=== PATIENT | female | born 1950 | race Caucasian/White ===

== ENCOUNTER 2020-08-17 10:04 | Inpatient (IN) ==
--- NOTE | 2020-08-03 16:07 | PAT Medication Instructions ---
Medication Instructions Date of Service August 03, 2020 Home Medications Medication Instructions Recorded furosemide 20 mg tablet 20 mg PO DAILY #90 tab 07/05/20 acarbose 50 mg PO TID aspirin [Aspir-81] 81 mg PO HS docusate sodium [Stool Softener] 100 mg PO QAM gabapentin 300 mg PO TID glipizide 10 mg PO BID levothyroxine 50 mcg PO QAM lisinopril 10 mg PO HS metformin 1,000 mg PO BID multivitamin 1 tab PO QAM peg 135-[id number]-[id number] [Eye Drop Tears] 1 drp OPHTHALMIC (EYE) BID PRN pravastatin 10 mg PO HS furosemide 20 mg tablet 20 mg PO DAILY pantoprazole 40 mg tablet,delayed release 40 mg PO DAILY PRN DO NOT take the morning of surgery acarbose 50 mg PO TID docusate sodium [Stool Softener] 100 mg PO QAM glipizide 10 mg PO BID metformin 1,000 mg PO BID multivitamin 1 tab PO QAM furosemide 20 mg tablet 20 mg PO DAILY gabapentin 300 mg PO TID Take morning of surgery With a small sip of water, OTHERWISE NOTHING TO EAT OR DRINK AFTER MIDNIGHT: levothyroxine 50 mcg PO QAM peg 298-[id number] [Eye Drop Tears] 1 drp OPHTHALMIC (EYE) BID PRN (if needed) pantoprazole 40 mg tablet,delayed release 40 mg PO DAILY PRN (if needed) Take evening before surgery acarbose 50 mg PO TID aspirin [Aspir-81] 81 mg PO HS (unless otherwise instructed by surgeon) gabapentin 300 mg PO TID glipizide 10 mg PO BID lisinopril 10 mg PO HS metformin 1,000 mg PO BID peg [id number]-[id number] [Eye Drop Tears] 1 drp OPHTHALMIC (EYE) BID PRN (if needed) pravastatin 10 mg PO HS pantoprazole 40 mg tablet,delayed release 40 mg PO DAILY PRN (if needed) Other Notes If you have any questions please call us at [phone] or [phone] or [phone] or [phone]
--- NOTE | 2020-08-06 10:55 | Anesthesiology Consultation ---
Date of Service August 06, 2020 Assessment & Plan (1) Encounter for pre-operative examination: Chart Review Chart Review: Acceptable Risk for Surgery (pending preop Covid testing results ) and Patient seen in Pre Admission Testing - Check BSG AM DOS Was initially scheduled for surgery May 2020- rescheduled due to hyponatremia. Seen by nephrology- started on diuretic and fluid restriction. Last seen by nephro 07/19/20= hyponatremia corrected (NA now 137). Patient following liberalization of NaCl in diet addition of low-dose furosemide. " Patient may proceed with orthopedic surgery if desired." Pt usually has N/V with most pain meds- can tolerate Tylenol #3 with codeine Per PAT appt on 08/06/20, patient denies any recent travel. No known Covid positive contacts or Covid related symptoms. Pt denies any known Covid infection in the past 90 days. Pt scheduled for preop Covid testing 08/10/20= will await results. Educated on importance of self quarantining, social distancing and wearing mask in public both for the patient and household contacts. Teaching & Discussion Pre-Anesthesia Teaching/Discussion Notes: Instructed NPO after midnight before surgery,except medications with 15 cc of water. Medication instructions provided according to the PAT guidelines. History Surgery Operation Date: 08/17/20 13:05 Proposed Procedures p L2-S1 Decompression/Fusion, Spinal Cord Monitoring - Mio Nugent DO Height/Weight Height: 5 ft Weight: 70.1 kg Allergies Allergy/AdvReac Type Severity Reaction Status Date / Time Opioids - Morphine Analogues AdvReac Mild N/V Verified 08/03/20 08:40 Medications Home Medications Medication Instructions Recorded Confirmed Last Taken acarbose 50 mg PO TID 05/10/20 08/03/20 Unknown aspirin [Aspir-81] 81 mg PO HS 05/10/20 08/03/20 Unknown docusate sodium [Stool Softener] 100 mg PO QAM 05/10/20 08/03/20 Unknown gabapentin 300 mg PO TID 05/10/20 08/03/20 Unknown glipizide 10 mg PO BID 05/10/20 08/03/20 Unknown levothyroxine 50 mcg PO QAM 05/10/20 08/03/20 Unknown lisinopril 10 mg PO HS 05/10/20 08/03/20 Unknown metformin 1,000 mg PO BID 05/10/20 08/03/20 Unknown multivitamin 1 tab PO QAM 05/10/20 08/03/20 Unknown peg [id number] [Eye 1 drp OPHTHALMIC (EYE) BID PRN 05/10/20 02/11/16 Unknown Drop Tears] pravastatin 10 mg PO HS 05/10/20 08/03/20 Unknown furosemide 20 mg tablet 20 mg PO DAILY #90 tab 07/05/20 08/03/20 Unknown pantoprazole 40 mg tablet,delayed 40 mg PO DAILY PRN 07/05/20 08/03/20 Unknown release Past Medical History Medical History (Updated 08/06/20 @ 11:22 by Liliana Tinoco PA-C) Chronic back pain LLE radiculopathy Chronic kidney disease stage III Diabetes mellitus, type 2 NIDDM- Hgb A1C 8.2 on 06/19/20 Hiatal hernia Hyperlipidemia Hypertension Hypothyroidism Low sodium levels HX OF (CURRENTLY WNL PER PATIENT) Neck pain chronic s/p remote whiplash injury 40+ years ago Exercise / Class Metabolic Activity III < 4 Walking/Shop/Light housework (no chest pain or SOB with flat surface/short distance ambulation- uses walker/cane for ambulation for stability ) Past Family History Family History Mother Family history of diabetes mellitus Grandmother (Maternal) Family history of diabetes mellitus Family/Other Family history of diabetes mellitus Uncle Family history of diabetes mellitus Son Family history of diabetes mellitus Denies family history of Kidney disease Past Surgical History Surgical History History of cholecystectomy History of colonoscopy History of cystoscopy multiple History of esophagogastroduodenoscopy (EGD) + dilation Hx of lumpectomy left breast (benign)/no limb restrictions Past Anesthesia History No Hx of Anesthesia Complications and No Family Hx of Anesthesia Complications History of PONV No Hx of Motion Sickness and History of PONV (with pain meds ) Social History Smoking Status: Former smoker Do You Dip or Chew Tobacco: No Smoking End Date: 6 MONTHS AGO Hx Alcohol Use: No Hx Substance Use: No Review of Systems GERD - rare- secondary to hiatal hernia - takes OTC meds - improved Snoring - no hx of sleep study Patient denies chest pain, shortness of breath, dyspnea on exertion, reflux, cough, wheezing, palpitations. No hx of seizures, stroke, MO.. No hx of blood clots or blood transfusions Physical Exam Vital Signs VITALS BP 123/84 P 92 TEMP 98.3 SP02 96% RESP 16 Constitutional no acute distress ENMT Mouth: no TMJ clicking Thyromental Distance: > or= 3.5 Finger Breadths (3.5) Mallampati Class: II Full upper dentures Lower partial dentures Neck + limited neck extension (mild to moderate ) Respiratory normal respiratory effort; no respiratory distress Auscultation: lungs clear to auscultation bilaterally and + diminished lung sounds (mildly throughout ); no wheezes Cardiovascular Rate/Rhythm: regular rate and regular rhythm Heart Sounds: no murmur Vessels: no carotid bruit Musculoskeletal Spine: + pain with cervical ROM (mild stiffness ) Extremities: extremities normal to inspection Psychiatric Orientation: alert Testing Laboratory Results 08/06/20 11:15 08/06/20 11:15 PT 10.0 Seconds (9.0-12.0) 08/06/20 11:15 INR 1.0 (0.9-1.1) 08/06/20 11:15 APTT 25.4 Seconds (21.0-31.0) 08/06/20 11:15 Urine Color Yellow 08/06/20 11:15 Urine Appearance Clear (Clear) 08/06/20 11:15 Urine pH 5.0 (4.5-7.5) 08/06/20 11:15 Ur Specific [place] 1.010 (1.000-1.030) 08/06/20 11:15 Urine Protein Negative (Negative) 08/06/20 11:15 Urine Glucose (UA) Negative (Negative) 08/06/20 11:15 Urine Ketones Negative (Negative) 08/06/20 11:15 Urine Nitrite Negative (Negative) 08/06/20 11:15 Ur Leukocyte Esterase Negative (Negative) 08/06/20 11:15 Urine WBC (Auto) 1-5 /hpf (0-5) 08/06/20 11:15 Urine RBC (Auto) 0-4 /hpf (0-4) 08/06/20 11:15 U Hyaline Cast (Auto) 1-5 /lpf (0-5) 08/06/20 11:15 U Epithel Cells (Auto) 10-20 /lpf (0-5) H 08/06/20 11:15 Urine Bacteria (Auto) Negative (Negative) 08/06/20 11:15 Blood Type O Positive 08/06/20 11:15 Antibody Screen NEGATIVE 08/06/20 11:15 06/19/20= HGB A1C: 8.2 Electrocardiogram Date: 05/22/20 Findings: + NSR @ (91) Chest X-Ray Date: 05/22/20 Findings: + NAD Other Testing Chest CT 06/19/20= Mild pulmonary emphysema. No evidence of focal pulmonary consolidation. There are a few scattered pulmonary micronodules, none of which exceeds 3 mm in diameter. No evidence of pathologic adenopathy.
[2020-08-06 11:50] LABS: Basophils # (auto) 0.04 K/uL (0-0.2); Basophils % (auto) 0.7 %; Eosinophils # (auto) 0.26 K/uL (0-0.5); Eosinophils % (auto) 4.4 %; Hematocrit (blood only) 37.5 % (37-47); Hemoglobin 12.2 g/dL (12.0-16.0); Lymphocytes # (auto) 2.15 K/uL (1.2-3.4); Lymphocytes % (auto) 36.6 %; Mean Corpuscular Hgb Conc 32.5 g/dL (32-36); Mean Corpuscular Volume 92.4 fL (80-100); Mean Platelet Volume 9.1 fL (7.4-10.4); Monocytes # (auto) 0.34 K/uL (0.11-0.59); Monocytes % (auto) 5.8 %; Neutrophils # (auto) 3.08 K/uL (1.4-6.5); Neutrophils % (auto) 52.5 %; Platelet Count 357 K/uL (130-400); RDW Coefficient of Variation 12.3 % (11.5-14.5); RDW Standard Deviation 41.6 fL (36.4-46.3); Red Blood Count 4.06 M/uL (4.2-5.4); White Blood Count 5.87 K/uL (4.8-10.8)
[2020-08-06 11:54] LABS: Appearance Urine Clear (Clear); Bacteria Urine Automated Negative (Negative); Bilirubin Urine Negative (Negative); Blood Urine 1+ (Negative); Color Urine Yellow; Glucose Urine UA Negative (Negative); Ketones Urine Negative (Negative); Leukocyte Esterase Urine Negative (Negative); Nitrite Urine Negative (Negative); Protein Urine Negative (Negative); RBC Urine Automated 0-4 /hpf (0-4); Urobilinogen Urine Negative (Negative)
[2020-08-06 12:00] LABS: BUN Creatinine Ratio 13.6 (10-20); Calcium 9.9 mg/dl (8.5-10.1); Creatinine Clr Calc Pharmacy 41.7 ml/min; Est GFR (African American) 59.8; Est GFR (Non-African American) 51.6; Potassium 4.6 mmol/L (3.5-5.1)
[2020-08-06 12:03] LABS: Partial Thromboplastin Time 25.4 Seconds (21.0-31.0)
[~2020-08-17 10:04] MED LIST: ACETAMINOPHEN 500 MG TAB PO SCH; CeleBREX 200 MG CAP PO SCH; GABAPENTIN 300 MG CAP PO SCH; HYDROmorphone INJ 2 MG/ML SYR/VIAL ONE; LR 15ML/HR IV SCH; MIDAZOLAM HCL 1 MG/ML 2ML VIAL ONE; ceFAZolin 1000MG 1,000 MG/7.5 ML SYR IV SCH; fentaNYL citrate 100 MCG/2 ML VIAL ONE
--- NOTE | 2020-08-17 12:24 | History & Physical Bridge Note ---
Date of Service August 17, 2020 History & Physical Bridge Note I have examined the patient, reviewed the History & Physical and in the interval since the performance of the History & Physical I have noted the following changes of clinical significance: no changes noted
--- NOTE | 2020-08-17 12:25 | History & Physical Report ---
Date of Service August 17, 2020 Assessment & Plan (1) Neurogenic claudication due to lumbar spinal stenosis: Admission and Anticipated Discharge Date Admission Date: L2-S1 decompression fusion History of Present Illness Chief Complaint: Back and leg pain Primary Care Provider: Kirt Antonio This is a 70-year-old female presents with chronic persistent back and leg pain. Failing course of nonoperative care is here for surgical invention. Allergies Allergy/AdvReac Type Severity Reaction Status Date / Time Opioids - Morphine Analogues AdvReac Mild N/V Verified 08/17/20 10:36 Home Medications Medication Instructions Recorded Confirmed Type acarbose 50 mg PO TID 05/10/20 08/17/20 History aspirin [Aspir-81] 81 mg PO HS 05/10/20 08/17/20 History docusate sodium [Stool Softener] 100 mg PO QAM 05/10/20 08/17/20 History gabapentin 300 mg PO TID 05/10/20 08/17/20 History glipizide 10 mg PO BID 05/10/20 08/17/20 History levothyroxine 50 mcg PO QAM 05/10/20 08/17/20 History lisinopril 10 mg PO HS 05/10/20 08/17/20 History metformin 1,000 mg PO BID 05/10/20 08/17/20 History multivitamin 1 tab PO QAM 05/10/20 08/17/20 History peg [id number] [Eye 1 drp OPHTHALMIC (EYE) BID PRN 05/10/20 08/17/20 History Drop Tears] pravastatin 10 mg PO HS 05/10/20 08/17/20 History furosemide 20 mg tablet 20 mg PO DAILY #90 tab 07/05/20 08/17/20 Rx pantoprazole 40 mg tablet,delayed 40 mg PO DAILY PRN 07/05/20 08/17/20 History release Past Med/Surg History Medical History (Updated 08/17/20 @ 12:25 by Mio Nugent DO) Chronic back pain LLE radiculopathy Chronic kidney disease stage III Diabetes mellitus, type 2 NIDDM- Hgb A1C 8.2 on 06/19/20 Hiatal hernia Hyperlipidemia Hypertension Hypothyroidism Low sodium levels HX OF (CURRENTLY WNL PER PATIENT) Neck pain chronic s/p remote whiplash injury 40+ years ago Surgical History History of cholecystectomy History of colonoscopy History of cystoscopy multiple History of esophagogastroduodenoscopy (EGD) + dilation Hx of lumpectomy left breast (benign)/no limb restrictions Family History Mother Family history of diabetes mellitus Grandmother (Maternal) Family history of diabetes mellitus Family/Other Family history of diabetes mellitus Uncle Family history of diabetes mellitus Son Family history of diabetes mellitus Denies family history of Kidney disease Social History Smoking Status: Former smoker Years Smoked: 50; Smoking End Date: 6 MONTHS AGO; Second Hand Exposure: Yes (SPOUSE USED TO SMOKE); Do You Dip or Chew Tobacco: No; Tobacco Cessation Education Requested by Patient: No Hx Alcohol Use: No Hx Substance Use: No Preferred Language: French Communication Ability: Effective Cloth Winder Required: No Beliefs That Will Affect Care: None Current Living Situation: Spouse current occupation: retired [employer] Feels Safe at Home: Yes Safety Concerns: Feels Safe At This Time Assistive Devices: Cane, Denture - Upper, Glasses and Walker Physical Exam Physical Exam: Patient is alert and oriented Heart regular rate and rhythm Lungs clear to auscultation Results & Data ([facility]) Vital Signs (Past 12 Hours) Vital Signs Temp Pulse Resp BP Pulse Ox 08/17/20 10:42 36.8 C 97 H 18 120/76 98
[2020-08-17] MEDS ORDERED: PROMETHAZINE HCL 12.5 MG in SODIUM CHLORIDE 0.9% 50 ML IV PRN ×2 (12:41→18:08)
[2020-08-17] MEDS ORDERED: ONDANSETRON INJ 2 MG/ML 2 ML VIAL IV PRN ×2 (12:41→18:08)
[2020-08-17] MEDS ORDERED: HYDROmorphone INJ 2 MG/ML SYR/VIAL IV PRN (12:41)
[2020-08-17] MEDS ORDERED: fentaNYL citrate 100 MCG/2 ML VIAL IV PRN (12:41)
[2020-08-17] MEDS ORDERED: ePHEDrine sulfate 50 MG/ML AMP IV PRN (12:41)
[2020-08-17] MEDS ORDERED: METOCLOPRAMIDE HCL INJ 5 MG/ML 2 ML VIAL IV PRN ×2 (12:41→18:08)
[2020-08-17] MEDS ORDERED: ATROPINE SULFATE 0.1 MG/ML 10ML SYR IV PRN (12:41)
[2020-08-17] MEDS ORDERED: BACITRACIN INJ 50,000 UNIT VIAL ONE (12:46)
[2020-08-17] MEDS ORDERED: BUPIVACAINE/EPINEPHRINE 0.5% MPF 1:200,000 30 ML VIAL ONE (12:46)
[2020-08-17] MEDS ORDERED: ALBUMIN HUMAN 5% 12.5 GM/250 ML VIAL IV ONE (12:48)
[2020-08-17] MEDS ORDERED: ONDANSETRON INJ 2 MG/ML 2 ML VIAL ONE (14:18)
[2020-08-17] MEDS ORDERED: diphenhydrAMINE 50 MG/ML VIAL ONE (14:18)
[2020-08-17] MEDS ORDERED: LIDOCAINE HCL 2% 2 ML VIAL/AMP(20MG/ML) INFIL ONE (14:18)
[2020-08-17] MEDS ORDERED: DEXAMETHASONE SOD INJ 4 MG/ML VIAL ONE (14:18)
[2020-08-17] MEDS ORDERED: PHENYLEPHRINE HCL 10 MG/ML VIAL ONE (14:18)
[2020-08-17] MEDS ORDERED: ROCURONIUM BROMIDE 10 MG/ML 5 ML VIAL IV ONE (14:18)
[2020-08-17] MEDS ORDERED: GLYCOPYRROLATE 0.2 MG/ML VIAL ONE (14:18)
[2020-08-17] MEDS ORDERED: LARYING-O-JET KIT (LTA) ONE (14:18)
[2020-08-17] MEDS ORDERED: ePHEDrine sulfate 50 MG/ML AMP ONE (14:18)
[2020-08-17] MEDS ORDERED: PROPOFOL IV EMULSION 10 MG/ML 20 ML VIAL IV ONE (14:18)
[2020-08-17] MEDS ORDERED: NEOSTIGMINE METHYLSULFATE 1 MG/ML 10ML VIAL ONE (14:18)
[2020-08-17] MEDS ORDERED: FLOSEAL HEMOSTATIC MATRIX 10ML TOP ONE (16:09)
--- NOTE | 2020-08-17 16:11 | Operative Report ---
Post Operative Report Pre & Post Diagnosis Operation Date: 08/17/20 11:45 Pre-Op Diagnosis: Intervertebral Disc Disorders with Radiculopathy L2-S1 Post-Op Diagnosis: Intervertebral Disc Disorders with Radiculopathy L2-S1 I identified the patient and participated in the time-out.: Yes Procedure Operation Date: 08/17/20 11:45 Actual Procedures #1 lumbar decompression bilateral medial facetectomies and foraminotomies L2-3, L3-4, L4-5 and L5-S1. #2 posterior spinal fusion L2-3, L3-4, L4-5 and L5-S1. #3 placement posterior segmental instrumentation including cross-link L2-S1. #4 placement locally harvested morselized autograft in the posterior gutters. #5 placement infuse collagen sponge combined with master graft in the posterior lateral gutters L2-S1. Surgeon Mio Nugent, Financial Aid Counselor Jose Field Estimated Blood Loss 200 Findings Consistent with Post-Op Diagnosis Specimens None Indications This is a 70-year-old female who presents with above-mentioned diagnosis after failing course of nonoperative care is here for the above-mentioned seizure. Description of Procedure Patient was met with identified informed consent obtained. Patient was then taken to the operative suite underwent a patient placed in a prone position the Guy table top [place] frame. All bony prominences well-padded eyes inspected to ensure no external pressure placed upon the. This point the lumbar spine was prepped and draped in a sterile fashion. Sharp dissection with assistance of Bovie cautery was performed down to and exposing the lamina and transverse processes of L2 L3-L4-L5 and sacral ala bilaterally. From caudal to cephalad fashion complete laminectomy of L5 L4 L3 and L2 was performed including bilateral medial facetectomies and foraminotomies addressing severe spinal stenosis as well as massive amounts of disc material at the L2-3 and L4-5 and L5-S1 levels. After complete decompression pedicle screws were placed in L2 L3-L4-L5 and S1 levels bilaterally with assistance of fluoroscopy and the process dixie placed. A cross-link locked in position. The transverse processes of L2 L3-L4-L5 and sacral ala burred to subcortical bleeding bone. Infuse collagen sponge mass graft local autograft was placed in the posterior gutters. 15 round LIA drain inserted. The incision was then closed with 1 Vicryl the fascia 2-0 Vicryl subcutaneously and 4 Monocryl for final skin closure. Steri- Strip sterile dressings placed. Patient will continue PACU stable condition. Please note spinal cord monitoring was utilized at the procedure no changes noted. Lastly Jose Field was present at the entire procedure involved in patient positioning complex portions of the surgery and final skin closure. I attest to the content of the Intraoperative Record and any orders documented therein. Any exceptions are noted below.
--- NOTE | 2020-08-17 16:23 | Fluoroscopy Report ---
FL lumbar spine 2-3V CLINICAL HISTORY: L2-S1 DECOMPRESSION AND FUSION COMPARISON STUDY: None. FLUOROSCOPY TIME: 31 seconds. FLUOROSCOPIC IMAGES: 4 FINDINGS: Fluoroscopy was provided during posterior decompression with bilateral pedicle screw fusion from L2 through S1. Interconnecting rods are present. Hardware is intact. IMPRESSION: Fluoroscopy provided during posterior decompression and L2-S1 bilateral pedicle screw fu rolando. ACT 112: Negative or not required by law. Electronically signed by: Janusz Roblero M.D. 08/17/2020 4:22 PM
--- NOTE | 2020-08-17 17:24 | Anesthesiology Progress Note ---
Date of Service August 17, 2020 Anesthesia Post Procedure Vital Signs Vital Signs: Temp Pulse Pulse Resp BP BP Pulse Ox 08/17/20 17:15 36.4 C L 104 H 21 119/70 99 08/17/20 17:10 104 H 22 114/65 99 08/17/20 17:00 107 H 18 127/76 99 08/17/20 16:50 107 H 15 126/75 100 08/17/20 16:46 36.4 C L 110 H 14 109/67 99 08/17/20 10:42 36.8 C 97 H 18 120/76 98 Transfer of Care Handoff Completed per policy Notes Mental Status: alert / awake / arousable and participated in evaluation Patient Amnestic to Procedure: Yes Nausea / Vomiting: adequately controlled Pain: adequately controlled Airway Patency, RR, SpO2: stable & adequate BP & HR: stable & adequate Hydration State: stable & adequate Anesthetic Complications: no major complications apparent and Pt Satisfied with anesthetic care
[2020-08-17] MEDS ORDERED: oxyCODONE HCL IR 5 MG TAB (IMMEDIATE RELEASE) PO PRN (18:08)
[2020-08-17] MEDS ORDERED: LORazepam 0.5 MG/1 ML VIAL IV PRN (18:08)
[2020-08-17] MEDS ORDERED: HYDROmorphone INJ 1 MG/ML SYRINGE IV PRN (18:08)
[2020-08-17] MEDS ORDERED: ONDANSETRON 4 MG OD TAB PO PRN (18:08)
[2020-08-17] MEDS ORDERED: FAMOTIDINE 20 MG TAB PO PRN (18:08)
[2020-08-17] MEDS ORDERED: ACETAMINOPHEN 1,000 MG/100 ML VIAL IV PRN (18:08)
[2020-08-17] MEDS ORDERED: MAGNESIUM HYDROXIDE SUSP 30 ML UDC PO PRN (18:08)
[2020-08-17] MEDS ORDERED: LORazepam 0.5 MG TAB PO PRN (18:08)
[2020-08-17] MEDS ORDERED: PANTOprazole 40 MG TAB PO PRN (18:08)
[2020-08-17] MEDS ORDERED: HYDROmorphone INJ 0.5 MG/0.5 ML SYR IV PRN (18:08)
[2020-08-17] MEDS ORDERED: SOD PHOSPHATE/SOD BIPHOSPHATE ENEMA 132 ML BTL PR PRN (18:08)
[2020-08-17] MEDS ORDERED: hydrOXYzine HCl 25 MG TAB PO PRN (18:08)
[2020-08-17] MEDS ORDERED: NALOXONE HCL 0.4 MG/1 ML VIAL/CARP IV PRN (18:08)
[2020-08-17] MEDS ORDERED: DO NOT ADMINISTER PNEUMOCOCCAL VACCINE PRN (18:08)
[2020-08-17] MEDS ORDERED: ALUMINUM/MAGNESIUM SUSP 30 ML UDC PO PRN (18:08)
[2020-08-17] MEDS ORDERED: diphenhydrAMINE Capsule 25 MG CAP PO PRN (18:08)
[2020-08-17] MEDS ORDERED: DO NOT ADMINISTER FLU VACCINE PRN (18:08)
[2020-08-17] MEDS ORDERED: PHARMACY GLYCEMIC MGMT CONSULT PRN (18:12)
[2020-08-17] MEDS ORDERED: ARTIFICIAL TEARS OP PRN (18:19)
[2020-08-17] MEDS ORDERED: NovoLIN-N (NPH) PER UNIT CHARGE SQ ONE (18:30)
[2020-08-17] MEDS: SODIUM CHLORIDE 0.9% 1000ML 1,000 ML IV SCH (18:37)
--- NOTE | 2020-08-17 18:42 | Pharmacy Report ---
Pharmacy Glycemic Short Note 2 - Date of Service August 17, 2020 - Glycemic Short BSG Results (Last 24 hours): 08/17/20 08/17/20 10:33 16:51 POC Glucose 180 H 208 H OUTPATIENT ANTIDIABETIC REGIMEN: * Metformin 1 g PO BIDM * Glipizide 10 mg PO BIDM * Acarbose 50 mg PO TID * HbA1c: 8.2% (06/19/20) ASSESSMENT: * GL is a 70 year old female POD #0 s/p L2-S1 decompression/fusion * Patient received 8 mg IV dexamethasone intraoperatively * Pre-op BSG of 180 mg/dL * Postoperative BSG of 208 mg/dL * Given steroids - will dose with stress of 3 Novolog and ~0.4 unit/kg NPH PLAN FOR INPATIENT GLYCEMIC CONTROL: * Hold outpatient oral diabetes medications * Basal insulin * NPH 25 units (~0.4 unit/kg) SC x 1 to cover dexamethasone * Bolus insulin * NovoLog per scale ACHS or Q6hrs while NPO * Goal Range: Low 110 mg/dL - High 140 mg/dL * Correction Factor: 25 mg/dL/unit * Nutritional / Prandial insulin per carb ratio of 1 unit per 8 grams CHO consumed * Overnight check at 0200 with same parameters PLAN FOR DISCHARGE: * tbd
[2020-08-17] MEDS: INSULIN ASPART 100 UNITS/ML 3 ML PEN SC SCH ×2 (19:37→22:36)
--- NOTE | 2020-08-17 19:37 | History & Physical Report ---
Date of Service August 17, 2020 Assessment & Plan (1) Status post lumbar surgery: Post op day# 0 S/P lumbar decompression fusion by Dr Nugent EB#200ml -pain management per ortho -wound management per ortho -PT/OT as appropriate -DVT prophylaxis per ortho -incentive spirometry -monitor H&H for acute blood loss anemia; Pre-op Hgb: 12 (2) Diabetes mellitus, type 2: A1c: 8.2 in 05/2020 Hold metformin Glycemic pharmacist on board, appreciate glycemic management (3) Hypertension: SBPs in 90s. Pt asymptomatic Hold furosemide, lisinopril and reassess in am (4) Hypothyroidism: Continue levothyroxine (5) Chronic kidney disease: CKD III Baseline Cr:~1.0 Monitor renal functions, avoid nephrotoxic agents when possible DVT Prophylaxis -SCDs per ortho Follows with Kirt Antonio PA-C in [place] for routine care Pt was seen and care coordinated with Dr Bach. See addendum Admission and Anticipated Discharge Date Admission Date: August 17, 2020 History of Present Illness Chief Complaint: Post op medical management Primary Care Provider: Kirt Antonio Pt is 70 y/o F with PMH HTN, HLD, DM II, hypothyroidism, GERD, CKD III seen in medical consultation for post op medical management s/p lumbar decompression and fusion by Dr Nugent. Post op pt reports doing ok with pain controlled. Denies N/V, CP, SOB. Has chronic bilateral leg/feet paraesthesias with left leg worse at baseline. Has Díaz cath in place. Denies fever/chills, N/V/D/C, ALONZO, dizziness, neck pain, palpitations, cough, sore throat, rhinorrhea, abdominal pain, extremity edema, rashes. Allergies Allergy/AdvReac Type Severity Reaction Status Date / Time Opioids - Morphine Analogues AdvReac Mild N/V Verified 08/17/20 10:36 Home Medications Medication Instructions Recorded Confirmed Type acarbose 50 mg PO TID 05/10/20 08/17/20 History aspirin [Aspir-81] 81 mg PO HS 05/10/20 08/17/20 History docusate sodium [Stool Softener] 100 mg PO QAM 05/10/20 08/17/20 History gabapentin 300 mg PO TID 05/10/20 08/17/20 History glipizide 10 mg PO BID 05/10/20 08/17/20 History levothyroxine 50 mcg PO QAM 05/10/20 08/17/20 History lisinopril 10 mg PO HS 05/10/20 08/17/20 History metformin 1,000 mg PO BID 05/10/20 08/17/20 History multivitamin 1 tab PO QAM 05/10/20 08/17/20 History peg [id number] [Eye 1 drp OPHTHALMIC (EYE) BID PRN 05/10/20 0 08/17/20 History Drop Tears] pravastatin 10 mg PO HS 05/10/20 08/17/20 History furosemide 20 mg tablet 20 mg PO DAILY #90 tab 07/05/20 08/17/20 Rx pantoprazole 40 mg tablet,delayed 40 mg PO DAILY PRN 07/05/20 08/17/20 History release Past Med/Surg History Medical History (Updated 08/17/20 @ 20:22 by Paige Reynoso PA-C) Chronic back pain LLE radiculopathy Chronic kidney disease stage III Diabetes mellitus, type 2 NIDDM- Hgb A1C 8.2 on 06/19/20 Hiatal hernia Hyperlipidemia Hypertension Hypothyroidism Low sodium levels HX OF (CURRENTLY WNL PER PATIENT) Neck pain chronic s/p remote whiplash injury 40+ years ago Surgical History (Updated 08/17/20 @ 20:22 by Paige Reynoso PA-C) History of cholecystectomy History of colonoscopy History of cystoscopy multiple History of esophagogastroduodenoscopy (EGD) + dilation Hx of lumpectomy left breast (benign)/no limb restrictions Family History Mother Family history of diabetes mellitus Grandmother (Maternal) Family history of diabetes mellitus Family/Other Family history of diabetes mellitus Uncle Family history of diabetes mellitus Son Family history of diabetes mellitus Denies family history of Kidney disease Social History Smoking Status: Former smoker Years Smoked: 50; Smoking End Date: 6 MONTHS AGO; Second Hand Exposure: Yes (SPOUSE USED TO SMOKE); Do You Dip or Chew Tobacco: No; Tobacco Cessation Education Requested by Patient: No Hx Alcohol Use: No Hx Substance Use: No Preferred Language: Yakut Communication Ability: Effective Performance Tester Required: No Beliefs That Will Affect Care: None Current Living Situation: Spouse 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 Feels Safe at Home: Yes Safety Concerns: Feels Safe At This Time Assistive Devices: Walker Review of Systems Review of Systems: All systems reviewed & are unremarkable except as noted in HPI & below Physical Exam Physical Exam: General: no distress, overweight Head: normocephalic, atraumatic Eyes:conjunctiva non-injected, anicteric ENT: normal inspection external ears, nose, mucous membranes moist Neck: supple, trachea midline Lungs: clear, no respiratory distress, no wheezing/rhonchi/rales CV: RRR, no murmur, no pretibial edema Abd: normal BS, soft, non-tender Back: LIA drain in place with serosanguineous drainage Ext: no cyanosis, no calf tenderness; sensation to light touch intact Neuro: A&O x 3, no focal deficits noted, normal affect Skin: warm, dry Results & Data Results & Data ([facility]) Vital Signs (Past 12 Hours) Vital Signs Temp Pulse Pulse Pulse Resp BP BP 08/17/20 18:45 36.3 C L 109 H 16 91/58 L 08/17/20 18:15 36.4 C L 107 H 16 91/58 L 88/56 L 08/17/20 17:45 36.5 C 107 H 20 108/67 08/17/20 17:25 105 H 13 108/63 08/17/20 17:15 36.4 C L 104 H 21 119/70 08/17/20 17:10 104 H 22 114/65 08/17/20 17:00 107 H 18 127/76 08/17/20 16:50 107 H 15 126/75 08/17/20 16:46 36.4 C L 110 H 14 109/67 08/17/20 10:42 36.8 C 97 H 18 120/76 Pulse Ox 08/17/20 18:45 96 08/17/20 18:15 99 08/17/20 17:45 98 08/17/20 17:25 98 08/17/20 17:15 99 08/17/20 17:10 99 08/17/20 17:00 99 08/17/20 16:50 100 08/17/20 16:46 99 08/17/20 10:42 98 Code Status & VTE Plan VTE Prophylaxis Plan VTE Prophylaxis will be ordered: Yes Supervising Physician Co-Signing Physician Notes History and physical exam obtained by me. History as detailed by Paige Reynoso, notable for 70-year-old woman with history of diabetes mellitus type 2 with neuropathy, hypertension, hyperlipidemia, GERD and radiculopathy who had lumbar decompression today by Dr. Nugent. Patient currently complains of only discomfort at the operation site. Exam findings notable for dressing over surgical site with drain in situ, blood pressure of 91/58, hypoactive bowel sounds -Intervertebral disc disorders with radiculopathy L2-S1 Failed nonoperative therapy Status post #1 lumbar decompression bilateral medial facetectomies and foraminotomies L2-3, L3-4, L4-5 and L5-S1. #2 posterior spinal fusion L2-3, L3-4, L4-5 and L5-S1. #3 placement posterior segmental instrumentation including cross-link L2-S1. #4 placement locally harvested morselized autograft in the posterior gutters. #5 placement infuse collagen sponge combined with master graft in the posterior lateral gutters L2-S1. Monitor recovery from surgery Continue to hold off antihypertensives and Lasix until reevaluation in the morning Hold oral antidiabetic agent. Manage blood sugar with insulin per sliding scale Continue levothyroxine and gabapentin Pain management per primary surgical team. Other plan as detailed by aPige Reynoso Thank you for the consult.
--- NOTE | 2020-08-17 19:42 | Communication Note ---
Date of Service: August 17, 2020 History and physical exam obtained by me. History as detailed by Paige Reynoso, notable for 70-year-old woman with history of diabetes mellitus type 2 with neuropathy, hypertension, hyperlipidemia, GERD and radiculopathy who had lumbar decompression today by Dr. Nugent. Patient currently complains of only discomfort at the operation site. Exam findings notable for dressing over surgical site with drain in situ, blood pressure of 91/58, hypoactive bowel sounds -Intervertebral disc disorders with radiculopathy L2-S1 Failed nonoperative therapy Status post #1 lumbar decompression bilateral medial facetectomies and foraminotomies L2-3, L3-4, L4-5 and L5-S1. #2 posterior spinal fusion L2-3, L3-4, L4-5 and L5-S1. #3 placement posterior segmental instrumentation including cross-link L2-S1. #4 placement locally harvested morselized autograft in the posterior gutters. #5 placement infuse collagen sponge combined with master graft in the posterior lateral gutters L2-S1. Monitor recovery from surgery Continue to hold off antihypertensives and Lasix until reevaluation in the morning Hold oral antidiabetic agent. Manage blood sugar with insulin per sliding scale Continue levothyroxine and gabapentin Pain management per primary surgical team. Other plan as detailed by Paige Reynoso Thank you for the consult.
[2020-08-17] MEDS: ceFAZolin 2000MG 2,000 MG/15 ML SYR IV SCH (20:01)
[2020-08-17] MEDS: DOCUSATE SODIUM/SENNA 50/8.6MG TAB PO SCH (20:02)
[2020-08-17] MEDS: ASPIRIN 81 MG ECTAB PO SCH (20:02)
[2020-08-17] MEDS: PRAVASTATIN SOD 10 MG TAB PO SCH (20:02)
[2020-08-17] MEDS: GABAPENTIN 300 MG CAP PO SCH (20:02)
[2020-08-17] MEDS ORDERED: ACARBOSE 50 MG TAB PO SCH (21:00)
[2020-08-17] MEDS ORDERED: lisinopril 10 MG TAB PO SCH (21:00)
[2020-08-17] MEDS ORDERED: glipiZIDE 5 MG TAB PO SCH (21:00)
[2020-08-17] MEDS ORDERED: INSULIN HUMAN REGULAR PER UNIT 4 UNITS in SYRINGE 3.96 ML IV ONE (22:30)
[2020-08-18] MEDS ORDERED: INSULIN ASPART 100 UNITS/ML 3 ML PEN SC SCH (02:00)
[2020-08-18] MEDS: SODIUM CHLORIDE 0.9% 1000ML 1,000 ML IV SCH ×2 (04:35→14:38)
[2020-08-18] MEDS: ceFAZolin 2000MG 2,000 MG/15 ML SYR IV SCH (06:16)
[2020-08-18] MEDS: LEVOTHYROXINE SODIUM 50 MCG TABLET PO SCH (06:16)
[2020-08-18 06:19] LABS: Hemoglobin 8.9 g/dL (12.0-16.0); Immature Granulocytes # (auto) 0.01 K/uL (0.00-0.02); Immature Granulocytes % (auto) 0.1 %; Lymphocytes # (auto) 1.05 K/uL (1.2-3.4); Lymphocytes % (auto) 12.1 %; Mean Corpuscular Hemoglobin 30.2 pg (25-34); Mean Corpuscular Volume 91.5 fL (80-100); Mean Platelet Volume 8.9 fL (7.4-10.4); Monocytes # (auto) 0.62 K/uL (0.11-0.59); Monocytes % (auto) 7.1 %; Neutrophils % (auto) 80.7 %; Platelet Count 305 K/uL (130-400); RDW Coefficient of Variation 12.4 % (11.5-14.5); RDW Standard Deviation 41.9 fL (36.4-46.3); Red Blood Count 2.95 M/uL (4.2-5.4); White Blood Count 8.68 K/uL (4.8-10.8)
[2020-08-18 06:45] LABS: BUN Creatinine Ratio 22.1 (10-20); Calcium 8.4 mg/dl (8.5-10.1); Creatinine Clr Calc Pharmacy 56.6 ml/min; Est GFR (African American) 84.7; Est GFR (Non-African American) 73.1; Potassium 4.7 mmol/L (3.5-5.1)
[2020-08-18] MEDS: MULTIVITAMIN TAB PO SCH (08:22)
[2020-08-18] MEDS: GABAPENTIN 300 MG CAP PO SCH ×3 (08:22→20:40)
[2020-08-18] MEDS: INSULIN ASPART 100 UNITS/ML 3 ML PEN SC SCH ×4 (08:25→20:50)
--- NOTE | 2020-08-18 08:36 | Orthopedic Progress Note ---
Date of Service August 18, 2020 Assessment & Plan (1) Neurogenic claudication due to lumbar spinal stenosis: Admission and Anticipated Discharge Date Admission Date: August 17, 2020 This time initiate physical therapy assess her progress throughout the weekend. Hopefully discharge early next week home versus rehab. Subjective Back pain controlled leg pain markedly improved Physical Exam Physical Exam: Patient is in bed appears comfortable. Is good strength testing. Results & Data ([facility]) Vital Signs (Past 12 Hours) Vital Signs Temp Pulse Pulse Resp BP Pulse Ox 08/18/20 07:22 84 116/70 99 08/18/20 07:07 36.7 C 82 16 92/64 L 96 08/18/20 06:18 77 104/66 08/18/20 02:16 36.9 C 76 17 92/57 L 95 08/18/20 00:45 89 103/69 96 08/18/20 00:43 85 88/62 L 96 08/17/20 22:59 36.6 C 96 H 18 87/55 L 94 08/17/20 20:46 36.5 C 109 H 16 111/67 93
[2020-08-18] MEDS ORDERED: FUROSEMIDE 20 MG TAB PO SCH (09:00)
[2020-08-18] MEDS ORDERED: INSULIN GLARGINE SOLOSTAR 100 UNITS/ML 3 ML PEN SC SCH ×3 (09:00→21:00)
--- NOTE | 2020-08-18 10:04 | Pharmacy Report ---
Pharmacy Glycemic Short Note 2 - Date of Service August 18, 2020 - Glycemic Short BSG Results (Last 24 hours): 08/17/20 08/17/20 08/17/20 10:33 16:51 18:30 Glucose POC Glucose 180 H 208 H 258 H 08/17/20 08/17/20 08/18/20 22:10 22:12 02:00 Glucose POC Glucose 331 H* 371 H* 179 H 08/18/20 08/18/20 06:00 08:07 Glucose 85 POC Glucose 78 OUTPATIENT ANTIDIABETIC REGIMEN: * Metformin 1 g PO BIDM * Glipizide 10 mg PO BIDM * Acarbose 50 mg PO TID * HbA1c: 8.2% (06/19/20) ASSESSMENT: 08/18/20 * Patient's BSG was elevated yesterday 208-331 mg/dL after surgery. She did receive steroids during surgery. * Patient's fasting BSG was 78 mg/dL indicating that 25 units of NPH may be too aggressive. * Load with 12 units of Lantus this morning (full weight-based stress of 1) then scale for this evening. Based upon A1C plus fact that patient is on 3 oral agents as an outpatient, she will require some basal insulin (suspect around 12-20 units/day of basal). * Weight-based stress of 3 for Novolog. 08/17/20 * GL is a 70 year old female POD #0 s/p L2-S1 decompression/fusion * Patient received 8 mg IV dexamethasone intraoperatively * Pre-op BSG of 180 mg/dL * Postoperative BSG of 208 mg/dL * Given steroids - will dose with stress of 3 Novolog and ~0.4 unit/kg NPH PLAN FOR INPATIENT GLYCEMIC CONTROL: * Hold outpatient oral diabetes medications * Basal insulin * Lantus 12 units SQ x 1 then 0-12 units SQ BID (hold if BSG < 120 mg/dL; 6 units if BSG 120-160 mg/dL; 12 units if BSG > 160 mg/dL) * Bolus insulin * NovoLog per scale ACHS or Q6hrs while NPO * Goal Range: Low 110 mg/dL - High 140 mg/dL * Correction Factor: 25 mg/dL/unit * Nutritional / Prandial insulin per carb ratio of 1 unit per 8 grams CHO consumed PLAN FOR DISCHARGE: * tbd
[2020-08-18] MEDS: POLYETHYLENE (MIRALAX) 17 GM PACK PO SCH ×3 (12:31→23:30)
--- NOTE | 2020-08-18 12:45 | Hospitalist Progress Note ---
Date of Service August 18, 2020 Assessment & Plan (1) Status post lumbar surgery: Post op day# 1 S/P lumbar decompression fusion by Dr Nugent -pain management per ortho -wound management per ortho -PT/OT as appropriate -DVT prophylaxis per ortho -incentive spirometry -monitor H&H for acute blood loss anemia; Pre-op Hgb: 12 Anemia (acute blood loss/dilutional) Current hemoglobin 8.9, no need for blood transfusion No chest pain, shortness of breath, dizziness or lightheadedness Continue to closely monitor H&H (2) Diabetes mellitus, type 2: A1c: 8.2 in 05/2020 Hold metformin Glycemic pharmacist on board, appreciate glycemic management Hyperglycemic yesterday, now blood sugar better control (3) Hypertension: SBPs in 90s. Pt asymptomatic Hold furosemide, lisinopril and reassess in am This a.m. blood pressure 107/66, continue current management (4) Hypothyroidism: Continue levothyroxine (5) Chronic kidney disease: CKD III Baseline Cr:~1.0 Monitor renal functions, avoid nephrotoxic agents when possible DVT Prophylaxis -SCDs per ortho Follows with Kirt Antonio PA-C in [place] for routine care Admission and Anticipated Discharge Date Admission Date: August 17, 2020 Subjective Pt seen in follow up - post-op management/ anemia (acute blood loss/ dilutional) Patient is currently sitting up in chair, in no acute distress. Reports she is feeling well, no chest pain shortness of breath. She is moving her lower extremities, says that her lower extremity feels better now after surgery. Denies any abdominal pain, nausea or vomiting. Also denies any dizziness. Hgb down to 8.9 Review of Systems Review of Systems: All systems reviewed & are unremarkable except as noted in HPI & below Constitutional: no fever and no chills Respiratory: no cough and no dyspnea Cardiovascular: no chest pain and no palpitations Gastrointestinal: no abdominal pain, no nausea and no vomiting Physical Exam Physical Exam: General: no distress, overweight Head: normocephalic, atraumatic Eyes:conjunctiva non-injected, anicteric ENT: normal inspection external ears, nose, mucous membranes moist Neck: supple, trachea midline Lungs: clear, no respiratory distress, no wheezing/rhonchi/rales CV: RRR, no murmur, no pretibial edema Abd: normal BS, soft, non-tender Back: LIA drain in place with serosanguineous drainage Ext: no cyanosis, no calf tenderness; sensation to light touch intact Neuro: A&O x 3, no focal deficits noted, normal affect Skin: warm, dry Results & Data Results & Data ([facility]) Vital Signs (Past 12 Hours) Vital Signs Temp Pulse Pulse Resp BP Pulse Ox 08/18/20 11:37 37.2 C 80 16 107/66 95 08/18/20 07:22 84 116/70 99 08/18/20 07:07 36.7 C 82 16 92/64 L 96 08/18/20 06:18 77 104/66 08/18/20 02:16 36.9 C 76 17 92/57 L 95 08/18/20 00:45 89 103/69 96 Laboratory Results 08/18/20 08/18/20 08/18/20 Range/Units 12:10 08:07 06:00 WBC (4.8-10.8) K/uL RBC (4.2-5.4) M/uL Hgb (12.0-16.0) g/dL Hct (37-47) % MCV (80-100) fL MCH (25-34) pg MCHC (32-36) g/dL RDW Std Deviation (36.4-46.3) fL RDW Coeff of Hannah (11.5-14.5) % Plt Count (130-400) K/uL MPV (7.4-10.4) fL Immature Gran % (Auto) % Neut % (Auto) % Lymph % (Auto) % [place] % (Auto) % Eos % (Auto) % Baso % (Auto) % Neut # (Auto) (1.4-6.5) K/uL Lymph # (Auto) (1.2-3.4) K/uL [place] # (Auto) (0.11-0.59) K/uL Eos # (Auto) (0-0.5) K/uL Baso # (Auto) (0-0.2) K/uL Immature Gran # (Auto) (0.00-0.02) K/uL Sodium 139 (136-145) mmol/L Potassium 4.7 (3.5-5.1) mmol/L Chloride 107 (98-107) mmol/L Carbon Dioxide 27 (21-32) mmol/L Anion Gap 5.0 (3-11) BUN 18 (7-18) mg/dl Creatinine 0.81 (0.6-1.2) mg/dl Est Cr Clr Drug Dosing 56.6 ml/min Est GFR ( Amer) 84.7 Est GFR (Non-Af Amer) 73.1 BUN/Creatinine Ratio 22.1 H (10-20) Glucose 85 (70-99) mg/dl POC Glucose 196 H 78 (70-99) mg/dl Calcium 8.4 L (8.5-10.1) mg/dl 08/18/20 08/18/20 08/17/20 Range/Units 06:00 02:00 22:12 WBC 8.68 (4.8-10.8) K/uL RBC 2.95 L (4.2-5.4) M/uL Hgb 8.9 L (12.0-16.0) g/dL Hct 27.0 L (37-47) % MCV 91.5 (80-100) fL MCH 30.2 (25-34) pg MCHC 33.0 (32-36) g/dL RDW Std Deviation 41.9 (36.4-46.3) fL RDW Coeff of Hannah 12.4 (11.5-14.5) % Plt Count 305 (130-400) K/uL MPV 8.9 (7.4-10.4) fL Immature Gran % (Auto) 0.1 % Neut % (Auto) 80.7 % Lymph % (Auto) 12.1 % [place] % (Auto) 7.1 % Eos % (Auto) 0.0 % Baso % (Auto) 0.0 % Neut # (Auto) 7.00 H (1.4-6.5) K/uL Lymph # (Auto) 1.05 L (1.2-3.4) K/uL [place] # (Auto) 0.62 H (0.11-0.59) K/uL Eos # (Auto) 0.00 (0-0.5) K/uL Baso # (Auto) 0.00 (0-0.2) K/uL Immature Gran # (Auto) 0.01 (0.00-0.02) K/uL Sodium (136-145) mmol/L Potassium (3.5-5.1) mmol/L Chloride (98-107) mmol/L Carbon Dioxide (21-32) mmol/L Anion Gap (3-11) BUN (7-18) mg/dl Creatinine (0.6-1.2) mg/dl Est Cr Clr Drug Dosing ml/min Est GFR ( Amer) Est GFR (Non-Af Amer) BUN/Creatinine Ratio (10-20) Glucose (70-99) mg/dl POC Glucose 179 H 371 H* (70-99) mg/dl Calcium (8.5-10.1) mg/dl 08/17/20 08/17/20 08/17/20 Range/Units 22:10 18:30 16:51 WBC (4.8-10.8) K/uL RBC (4.2-5.4) M/uL Hgb (12.0-16.0) g/dL Hct (37-47) % MCV (80-100) fL MCH (25-34) pg MCHC (32-36) g/dL RDW Std Deviation (36.4-46.3) fL RDW Coeff of Hannah (11.5-14.5) % Plt Count (130-400) K/uL MPV (7.4-10.4) fL Immature Gran % (Auto) % Neut % (Auto) % Lymph % (Auto) % [place] % (Auto) % Eos % (Auto) % Baso % (Auto) % Neut # (Auto) (1.4-6.5) K/uL Lymph # (Auto) (1.2-3.4) K/uL [place] # (Auto) (0.11-0.59) K/uL Eos # (Auto) (0-0.5) K/uL Baso # (Auto) (0-0.2) K/uL Immature Gran # (Auto) (0.00-0.02) K/uL Sodium (136-145) mmol/L Potassium (3.5-5.1) mmol/L Chloride (98-107) mmol/L Carbon Dioxide (21-32) mmol/L Anion Gap (3-11) BUN (7-18) mg/dl Creatinine (0.6-1.2) mg/dl Est Cr Clr Drug Dosing ml/min Est GFR ( Amer) Est GFR (Non-Af Amer) BUN/Creatinine Ratio (10-20) Glucose (70-99) mg/dl POC Glucose 331 H* 258 H 208 H (70-99) mg/dl Calcium (8.5-10.1) mg/dl Medications Administered Current Inpatient Medications Acetaminophen (Acetaminophen 500 Mg Tab) 1,000 mg PO Q8H PRN PRN Reason: MILD Pain Scale 1,2,3 & Pre PT Stop: 09/16/20 18:07 Al Hydrox/Mg Hydrox/Simethicone (Aluminum/Magnesium Susp 30 Ml Udc) 30 ml PO Q6H PRN PRN Reason: Dyspepsia Stop: 09/16/20 18:07 Artificial Tears (Artificial Tears) 1 drops OP BID PRN PRN Reason: DRY EYES Stop: 09/16/20 18:18 Aspirin (Aspirin 81 Mg Ectab) 81 mg PO HS [facility] Stop: 09/16/20 20:59 Last Admin: 08/17/20 20:02 Dose: 81 mg Documented by: Bisacodyl (Bisacodyl 10 Mg Supp) 10 mg SC DAILY PRN PRN Reason: Constipation Stop: 09/18/20 16:11 Diphenhydramine HCl (Diphenhydramine Capsule 25 Mg Cap) 25 mg PO Q6H PRN PRN Reason: Allergic Rhinitis/Insomnia Stop: 09/16/20 18:07 Famotidine (Famotidine 20 Mg Tab) 20 mg PO Q12H PRN PRN Reason: Dyspepsia Stop: 09/16/20 18:07 Furosemide (Furosemide 20 Mg Tab) 20 mg PO DAILY [facility] Stop: 09/17/20 08:59 Gabapentin (Gabapentin 300 Mg Cap) 300 mg PO TID JF Stop: 09/16/20 20:59 Last Admin: 08/18/20 08:22 Dose: 300 mg Documented by: Hydromorphone HCl (Hydromorphone Inj 0.5 Mg/0.5 Ml Syr) 0.5 mg IV Q3H PRN PRN Reason: MOD pain (scale 4-6) & Pre PT Stop: 08/31/20 18:07 Hydromorphone HCl (Hydromorphone Inj 1 Mg/Ml Syringe) 1 mg IV Q3H PRN PRN Reason: severe pain (scale 7-10) Stop: 08/31/20 18:07 Hydroxyzine HCl (Hydroxyzine Hcl 25 Mg Tab) 25 mg PO Q8H PRN PRN Reason: Anxiety Stop: 09/16/20 18:07 Sodium Chloride (Nss 1000ml) 1,000 mls @ 100 mls/hr IV .Q10H JF Stop: 09/16/20 18:07 Last Admin: 08/18/20 04:35 Dose: 100 mls/hr Documented by: Promethazine HCl 12.5 mg/ (Sodium Chloride) 50.5 mls @ 202 mls/hr IV Q6H PRN PRN Reason: Nausea &/or Vomiting Stop: 09/16/20 18:07 Lorazepam (Ativan) 0.5 mg in 1 mls @ 1 mls/min IV Q8H PRN PRN Reason: Sedation/Anxiety Stop: 09/16/20 18:07 Acetaminophen (Ofirmev) 1,000 mg in 100 mls @ 400 mls/hr IV Q8H PRN PRN Reason: Pain Rating 1-3 & Pre PT Stop: 08/20/20 18:07 Influenza Virus Vaccine Quadrival (Do Not Administer Flu Vaccine) 1 ea N/A PRN PRN PRN Reason: Notification Stop: 09/16/20 18:07 Insulin Aspart (Insulin Aspart 100 Units/Ml 3 Ml Pen) [address] [facility] Stop: 09/16/20 18:44 Last Admin: 08/18/20 12:30 Dose: 9 units Documented by: Insulin Glargine (Insulin Glargine Solostar 100 Units/Ml 3 Ml Pen) 0 units SC BID [facility]; Protocol Stop: 09/17/20 20:59 Insulin Glargine (Insulin Glargine Solostar 100 Units/Ml 3 Ml Pen) 0 units SC HS [facility]; Protocol Stop: 08/18/20 21:01 Levothyroxine Sodium (Levothyroxine Sodium 50 Mcg Tablet) 50 mcg PO DAILYBB [facility] Stop: 09/17/20 06:29 Last Admin: 08/18/20 06:16 Dose: 50 mcg Documented by: Lisinopril (Lisinopril 10 Mg Tab) 10 mg PO HS [facility] Stop: 09/16/20 20:59 Last Admin: 08/17/20 20:00 Dose: Not Given Documented by: Lorazepam (Lorazepam 0.5 Mg Tab) 0.5 mg PO Q8H PRN PRN Reason: sedation/anxiety Stop: 09/16/20 18:07 Magnesium Hydroxide (Magnesium Hydroxide Susp 30 Ml Udc) 30 ml PO Q24H PRN PRN Reason: Constipation Stop: 09/16/20 18:07 Metoclopramide HCl (Metoclopramide Hcl Inj 5 Mg/Ml 2 Ml Vial) 10 mg IV Q6H PRN PRN Reason: Nausea &/or Vomiting Stop: 09/16/20 18:07 Miscellaneous Information (Pharmacy Glycemic Mgmt Consult) 1 ea N/A UD PRN PRN Reason: Consult Stop: 09/16/20 18:11 Multivitamins (Multivitamin Tab) 1 tab PO QAM JF Stop: 09/17/20 08:59 Last Admin: 08/18/20 08:22 Dose: 1 tab Documented by: Naloxone HCl (Naloxone Hcl 0.4 Mg/1 Ml Vial/Carp) 0.1 mg IV Q5M PRN PRN Reason: Oversedation/respiratory dep Stop: 09/16/20 18:07 Ondansetron HCl (Ondansetron Inj 2 Mg/Ml 2 Ml Vial) 4 mg IV Q6H PRN PRN Reason: Nausea &/or Vomiting Stop: 09/16/20 18:07 Ondansetron HCl (Ondansetron 4 Mg Od Tab) 4 mg PO Q6H PRN PRN Reason: Nausea Stop: 09/16/20 18:07 Oxycodone HCl (Oxycodone Hcl Ir 5 Mg Tab (Immediate Release)) 5 - 10 mg PO Q4H PRN PRN Reason: Pain & Pre PT Stop: 08/31/20 18:07 Pantoprazole Sodium (Pantoprazole 40 Mg Tab) 40 mg PO DAILY PRN PRN Reason: Acid Reflux Stop: 09/16/20 18:07 Pneumococcal Polyvalent Vaccine (Do Not Administer Pneumococcal Vaccine) 1 ea N/A PRN PRN PRN Reason: Notification Stop: 09/16/20 18:07 Polyethylene Glycol (Polyethylene (Miralax) 17 Gm Pack) 17 gm PO Q6 JF Stop: 09/17/20 11:59 Last Admin: 08/18/20 12:31 Dose: 17 gm Documented by: Pravastatin Sodium (Pravastatin Sod 10 Mg Tab) 10 mg PO HS JF Stop: 09/16/20 20:59 Last Admin: 08/17/20 20:02 Dose: 10 mg Documented by: Senna/Docusate Sodium (Docusate Sodium/Senna 50/8.6mg Tab) 2 tab PO [facility] Stop: 09/16/20 20:59 Last Admin: 08/17/20 20:02 Dose: 2 tab Documented by: Sodium Biphosphate/Sodium Phosphate (Sod Phosphate/Sod Biphosphate Enema 132 Ml Btl) 132 ml SC ONE PRN PRN Reason: Constipation Stop: 09/16/20 18:07 Tramadol HCl (Tramadol Hcl 50 Mg Tablet) 50 - 100 mg PO Q4H PRN PRN Reason: Moderate-Severe pain & Pre PT Stop: 09/16/20 18:07
[2020-08-18] MEDS: traMADol HCL 50 MG TABLET PO PRN (15:44)
[2020-08-18] MEDS: ACETAMINOPHEN 500 MG TAB PO PRN (15:45)
[2020-08-18] MEDS: ASPIRIN 81 MG ECTAB PO SCH (20:39)
[2020-08-18] MEDS: PRAVASTATIN SOD 10 MG TAB PO SCH (20:39)
[2020-08-18] MEDS: DOCUSATE SODIUM/SENNA 50/8.6MG TAB PO SCH (20:40)
[2020-08-19] MEDS: traMADol HCL 50 MG TABLET PO PRN ×2 (01:21→08:42)
[2020-08-19] MEDS: POLYETHYLENE (MIRALAX) 17 GM PACK PO SCH ×4 (05:16→23:17)
[2020-08-19] MEDS: LEVOTHYROXINE SODIUM 50 MCG TABLET PO SCH (05:17)
[2020-08-19] MEDS: ACETAMINOPHEN 500 MG TAB PO PRN (05:19)
[2020-08-19 06:28] LABS: Hemoglobin 8.5 g/dL (12.0-16.0); Mean Corpuscular Hemoglobin 30.1 pg (25-34); Mean Corpuscular Hgb Conc 32.7 g/dL (32-36); Mean Corpuscular Volume 92.2 fL (80-100); Mean Platelet Volume 9.3 fL (7.4-10.4); Platelet Count 280 K/uL (130-400); RDW Coefficient of Variation 12.7 % (11.5-14.5); RDW Standard Deviation 43.1 fL (36.4-46.3); Red Blood Count 2.82 M/uL (4.2-5.4); White Blood Count 7.97 K/uL (4.8-10.8)
[2020-08-19 07:04] LABS: Calcium 8.4 mg/dl (8.5-10.1); Creatinine Clr Calc Pharmacy 48.3 ml/min; Est GFR (African American) 69.8; Est GFR (Non-African American) 60.3; Potassium 4.8 mmol/L (3.5-5.1)
--- NOTE | 2020-08-19 07:12 | Hospitalist Progress Note ---
Date of Service August 19, 2020 Assessment & Plan (1) Status post lumbar surgery: Post op day# 2 S/P lumbar decompression fusion by Dr Nugent -pain management per ortho -wound management per ortho -PT/OT as appropriate -DVT prophylaxis per ortho -incentive spirometry -monitor H&H for acute blood loss anemia; Pre-op Hgb: 12 Anemia (acute blood loss/dilutional) Current hemoglobin 8.5 (stable from yesterday), no need for blood transfusion No chest pain, shortness of breath, dizziness or lightheadedness Continue to closely monitor H&H (2) Diabetes mellitus, type 2: A1c: 8.2 in 05/2020 Hold metformin Glycemic pharmacist on board, appreciate glycemic management (3) Hypertension: SBPs in 90s. Pt asymptomatic Hold furosemide, lisinopril and reassess in am This a.m. blood pressure 104/67, continue current management (4) Hypothyroidism: Continue levothyroxine (5) Chronic kidney disease: CKD III Baseline Cr:~1.0 Monitor renal functions, avoid nephrotoxic agents when possible DVT Prophylaxis -SCDs per ortho Follows with Kirt Antonio PA-C in [place] for routine care Admission and Anticipated Discharge Date Admission Date: August 17, 2020 Subjective Pt seen in follow up - post-op management/ anemia (acute blood loss/ dilutional) Patient is currently sitting up in chair, in no acute distress. Reports she is feeling well, no chest pain shortness of breath. She is moving her lower extremities, says that her lower extremity feels better now after surgery. Denies any abdominal pain, nausea or vomiting. Also denies any dizziness. No BM yet Hgb 8.5, stable from 8.9 yesterday Review of Systems Review of Systems: All systems reviewed & are unremarkable except as noted in HPI & below Constitutional: no fever and no chills Respiratory: no cough and no dyspnea Cardiovascular: no chest pain and no palpitations Gastrointestinal: no abdominal pain, no nausea and no vomiting Physical Exam Physical Exam: General: no distress, overweight Head: normocephalic, atraumatic Eyes:conjunctiva non-injected, anicteric ENT: normal inspection external ears, nose, mucous membranes moist Neck: supple, trachea midline Lungs: clear, no respiratory distress, no wheezing/rhonchi/rales CV: RRR, no murmur, no pretibial edema Abd: normal BS, soft, non-tender Back: LIA drain in place with serosanguineous drainage Ext: no cyanosis, no calf tenderness; sensation to light touch intact Neuro: A&O x 3, no focal deficits noted, normal affect Skin: warm, dry Results & Data Results & Data ([facility]) Vital Signs (Past 12 Hours) Vital Signs Temp Pulse Resp BP Pulse Ox 08/18/20 22:47 36.6 C 75 16 97/62 L 92 Laboratory Results 08/19/20 08/19/20 08/18/20 Range/Units 05:56 05:56 20:44 WBC 7.97 (4.8-10.8) K/uL RBC 2.82 L (4.2-5.4) M/uL Hgb 8.5 L (12.0-16.0) g/dL Hct 26.0 L (37-47) % MCV 92.2 (80-100) fL MCH 30.1 (25-34) pg MCHC 32.7 (32-36) g/dL RDW Std Deviation 43.1 (36.4-46.3) fL RDW Coeff of Hannah 12.7 (11.5-14.5) % Plt Count 280 (130-400) K/uL MPV 9.3 (7.4-10.4) fL Sodium 135 L (136-145) mmol/L Potassium 4.8 (3.5-5.1) mmol/L Chloride 102 (98-107) mmol/L Carbon Dioxide 27 (21-32) mmol/L Anion Gap 6.0 (3-11) BUN 22 H (7-18) mg/dl Creatinine 0.95 (0.6-1.2) mg/dl Est Cr Clr Drug Dosing 48.3 ml/min Est GFR ( Amer) 69.8 Est GFR (Non-Af Amer) 60.3 BUN/Creatinine Ratio 23.0 H (10-20) Glucose 156 H (70-99) mg/dl POC Glucose 148 H (70-99) mg/dl Calcium 8.4 L (8.5-10.1) mg/dl 08/18/20 08/18/20 08/18/20 Range/Units 17:02 12:10 08:07 WBC (4.8-10.8) K/uL RBC (4.2-5.4) M/uL Hgb (12.0-16.0) g/dL Hct (37-47) % MCV (80-100) fL MCH (25-34) pg MCHC (32-36) g/dL RDW Std Deviation (36.4-46.3) fL RDW Coeff of Hannah (11.5-14.5) % Plt Count (130-400) K/uL MPV (7.4-10.4) fL Sodium (136-145) mmol/L Potassium (3.5-5.1) mmol/L Chloride (98-107) mmol/L Carbon Dioxide (21-32) mmol/L Anion Gap (3-11) BUN (7-18) mg/dl Creatinine (0.6-1.2) mg/dl Est Cr Clr Drug Dosing ml/min Est GFR ( Amer) Est GFR (Non-Af Amer) BUN/Creatinine Ratio (10-20) Glucose (70-99) mg/dl POC Glucose 125 H 196 H 78 (70-99) mg/dl Calcium (8.5-10.1) mg/dl Medications Administered Current Inpatient Medications Acetaminophen (Acetaminophen 500 Mg Tab) 1,000 mg PO Q8H PRN PRN Reason: MILD Pain Scale 1,2,3 & Pre PT Stop: 09/16/20 18:07 Last Admin: 08/19/20 05:19 Dose: 1,000 mg Documented by: Al Hydrox/Mg Hydrox/Simethicone (Aluminum/Magnesium Susp 30 Ml Udc) 30 ml PO Q6H PRN PRN Reason: Dyspepsia Stop: 09/16/20 18:07 Artificial Tears (Artificial Tears) 1 drops OP BID PRN PRN Reason: DRY EYES Stop: 09/16/20 18:18 Aspirin (Aspirin 81 Mg Ectab) 81 mg PO HS JF Stop: 09/16/20 20:59 Last Admin: 08/18/20 20:39 Dose: 81 mg Documented by: Bisacodyl (Bisacodyl 10 Mg Supp) 10 mg DC DAILY PRN PRN Reason: Constipation Stop: 09/18/20 16:11 Diphenhydramine HCl (Diphenhydramine Capsule 25 Mg Cap) 25 mg PO Q6H PRN PRN Reason: Allergic Rhinitis/Insomnia Stop: 09/16/20 18:07 Famotidine (Famotidine 20 Mg Tab) 20 mg PO Q12H PRN PRN Reason: Dyspepsia Stop: 09/16/20 18:07 Furosemide (Furosemide 20 Mg Tab) 20 mg PO DAILY [facility] Stop: 09/17/20 08:59 Gabapentin (Gabapentin 300 Mg Cap) 300 mg PO TID [facility] Stop: 09/16/20 20:59 Last Admin: 08/18/20 20:40 Dose: 300 mg Documented by: Hydromorphone HCl (Hydromorphone Inj 0.5 Mg/0.5 Ml Syr) 0.5 mg IV Q3H PRN PRN Reason: MOD pain (scale 4-6) & Pre PT Stop: 08/31/20 18:07 Hydromorphone HCl (Hydromorphone Inj 1 Mg/Ml Syringe) 1 mg IV Q3H PRN PRN Reason: severe pain (scale 7-10) Stop: 08/31/20 18:07 Hydroxyzine HCl (Hydroxyzine Hcl 25 Mg Tab) 25 mg PO Q8H PRN PRN Reason: Anxiety Stop: 09/16/20 18:07 Promethazine HCl 12.5 mg/ (Sodium Chloride) 50.5 mls @ 202 mls/hr IV Q6H PRN PRN Reason: Nausea &/or Vomiting Stop: 09/16/20 18:07 Lorazepam (Ativan) 0.5 mg in 1 mls @ 1 mls/min IV Q8H PRN PRN Reason: Sedation/Anxiety Stop: 09/16/20 18:07 Acetaminophen (Ofirmev) 1,000 mg in 100 mls @ 400 mls/hr IV Q8H PRN PRN Reason: Pain Rating 1-3 & Pre PT Stop: 08/20/20 18:07 Influenza Virus Vaccine Quadrival (Do Not Administer Flu Vaccine) 1 ea N/A PRN PRN PRN Reason: Notification Stop: 09/16/20 18:07 Insulin Aspart (Insulin Aspart 100 Units/Ml 3 Ml Pen) 0 units SC ACHS [facility] Stop: 09/16/20 18:44 Last Admin: 08/18/20 20:50 Dose: 1 units Documented by: Insulin Glargine (Insulin Glargine Solostar 100 Units/Ml 3 Ml Pen) 0 units SC BID [facility]; Protocol Stop: 09/17/20 20:59 Levothyroxine Sodium (Levothyroxine Sodium 50 Mcg Tablet) [facility] Stop: 09/17/20 06:29 Last Admin: 08/19/20 05:17 Dose: 50 mcg Documented by: Lisinopril (Lisinopril 10 Mg Tab) 10 mg PO [facility] Stop: 09/16/20 20:59 Last Admin: 08/17/20 20:00 Dose: Not Given Documented by: Lorazepam (Lorazepam 0.5 Mg Tab) 0.5 mg PO Q8H PRN PRN Reason: sedation/anxiety Stop: 09/16/20 18:07 Magnesium Hydroxide (Magnesium Hydroxide Susp 30 Ml Udc) 30 ml PO Q24H PRN PRN Reason: Constipation Stop: 09/16/20 18:07 Metoclopramide HCl (Metoclopramide Hcl Inj 5 Mg/Ml 2 Ml Vial) 10 mg IV Q6H PRN PRN Reason: Nausea &/or Vomiting Stop: 09/16/20 18:07 Miscellaneous Information (Pharmacy Glycemic Mgmt Consult) 1 ea N/A UD PRN PRN Reason: Consult Stop: 09/16/20 18:11 Multivitamins (Multivitamin Tab) 1 tab PO QAM [facility] Stop: 09/17/20 08:59 Last Admin: 08/18/20 08:22 Dose: 1 tab Documented by: Naloxone HCl (Naloxone Hcl 0.4 Mg/1 Ml Vial/Carp) 0.1 mg IV Q5M PRN PRN Reason: Oversedation/respiratory dep Stop: 09/16/20 18:07 Ondansetron HCl (Ondansetron Inj 2 Mg/Ml 2 Ml Vial) 4 mg IV Q6H PRN PRN Reason: Nausea &/or Vomiting Stop: 09/16/20 18:07 Ondansetron HCl (Ondansetron 4 Mg Od Tab) 4 mg PO Q6H PRN PRN Reason: Nausea Stop: 09/16/20 18:07 Oxycodone HCl (Oxycodone Hcl Ir 5 Mg Tab (Immediate Release)) 5 - 10 mg PO Q4H PRN PRN Reason: Pain & Pre PT Stop: 08/31/20 18:07 Pantoprazole Sodium (Pantoprazole 40 Mg Tab) 40 mg PO DAILY PRN PRN Reason: Acid Reflux Stop: 09/16/20 18:07 Pneumococcal Polyvalent Vaccine (Do Not Administer Pneumococcal Vaccine) 1 ea N/A PRN PRN PRN Reason: Notification Stop: 09/16/20 18:07 Polyethylene Glycol (Polyethylene (Miralax) 17 Gm Pack) 17 gm PO Q6 JF Stop: 09/17/20 11:59 Last Admin: 08/19/20 05:16 Dose: 17 gm Documented by: Pravastatin Sodium (Pravastatin Sod 10 Mg Tab) 10 mg PO HS [facility] Stop: 09/16/20 20:59 Last Admin: 08/18/20 20:39 Dose: 10 mg Documented by: Senna/Docusate Sodium (Docusate Sodium/Senna 50/8.6mg Tab) 2 tab PO [facility] Stop: 09/16/20 20:59 Last Admin: 08/18/20 20:40 Dose: 2 tab Documented by: Sodium Biphosphate/Sodium Phosphate (Sod Phosphate/Sod Biphosphate Enema 132 Ml Btl) 132 ml DC ONE PRN PRN Reason: Constipation Stop: 09/16/20 18:07 Tramadol HCl (Tramadol Hcl 50 Mg Tablet) 50 - 100 mg PO Q4H PRN PRN Reason: Moderate-Severe pain & Pre PT Stop: 09/16/20 18:07 Last Admin: 08/19/20 01:21 Dose: 50 mg Documented by:
[2020-08-19] MEDS: MULTIVITAMIN TAB PO SCH (08:43)
[2020-08-19] MEDS: GABAPENTIN 300 MG CAP PO SCH ×3 (08:43→20:45)
[2020-08-19] MEDS: INSULIN ASPART 100 UNITS/ML 3 ML PEN SC SCH ×4 (08:45→21:29)
[2020-08-19] MEDS ORDERED: INSULIN GLARGINE SOLOSTAR 100 UNITS/ML 3 ML PEN SC SCH (09:00)
--- NOTE | 2020-08-19 10:21 | Orthopedic Progress Note ---
Date of Service August 19, 2020 Assessment & Plan (1) Neurogenic claudication due to lumbar spinal stenosis: Admission and Anticipated Discharge Date Admission Date: August 17, 2020 This time we will continue physical therapy monitor her LIA output anticipate possible discharge home tomorrow. Subjective Patient's pain is controlled leg symptoms markedly improved. Physical Exam Physical Exam: Patient is in the chair at the bedside is good strength testing. Results & Data ([facility]) Vital Signs (Past 12 Hours) Vital Signs Temp Pulse Pulse Resp BP Pulse Ox 08/19/20 07:36 36.7 C 81 18 104/67 92 08/18/20 22:47 36.6 C 75 16 97/62 L 92
[2020-08-19] MEDS ORDERED: INSULIN GLARGINE SOLOSTAR 100 UNITS/ML 3 ML PEN SC ONE (12:30)
--- NOTE | 2020-08-19 14:01 | Pharmacy Report ---
Pharmacy Glycemic Short Note 2 - Date of Service August 19, 2020 - Glycemic Short BSG Results (Last 24 hours): 08/18/20 08/18/20 08/19/20 17:02 20:44 05:56 Glucose 156 H POC Glucose 125 H 148 H 08/19/20 08/19/20 08:15 11:58 Glucose POC Glucose 181 H 249 H OUTPATIENT ANTIDIABETIC REGIMEN: * Metformin 1 g PO BIDM * Glipizide 10 mg PO BIDM * Acarbose 50 mg PO TID * HbA1c: 8.2% (06/19/20) ASSESSMENT: 08/19/20 * Patient's BSGs yesterday were [id number] mg/dL. She received 32 units of insulin (12 units of basal insulin and 20 units of bolus insulin). Fasting BSG today was 181 mg/dL. * Started with Lantus 15 units (full weight-based stress of 1); however, lunch BSG of 249 mg/dL was significantly elevated. Give additional 5 units of Lantus for total of 20 units today. (Slightly less than full weight-based stress of 2). Scale for tomorrow with 20% increase and decrease. * Tighten Novolog to tighter than weight-based stress of 3. 08/18/20 * Patient's BSG was elevated yesterday 208-331 mg/dL after surgery. She did receive steroids during surgery. * Patient's fasting BSG was 78 mg/dL indicating that 25 units of NPH may be too aggressive. * Load with 12 units of Lantus this morning (full weight-based stress of 1) then scale for this evening. Based upon A1C plus fact that patient is on 3 oral agents as an outpatient, she will require some basal insulin (suspect around 12-20 units/day of basal). * Weight-based stress of 3 for Novolog. 08/17/20 * GL is a 70 year old female POD #0 s/p L2-S1 decompression/fusion * Patient received 8 mg IV dexamethasone intraoperatively * Pre-op BSG of 180 mg/dL * Postoperative BSG of 208 mg/dL * Given steroids - will dose with stress of 3 Novolog and ~0.4 unit/kg NPH PLAN FOR INPATIENT GLYCEMIC CONTROL: * Hold outpatient oral diabetes medications * Basal insulin * Lantus 20 units today then 16-24 units SQ daily (16 units if BSG < 120 mg/dL; 20 units if BSG 120-140 mg/dL; 24 units if BSG > 140 mg/dL). * Bolus insulin * NovoLog per scale ACHS or Q6hrs while NPO * Goal Range: Low 110 mg/dL - High 140 mg/dL * Correction Factor: 20 mg/dL/unit * Nutritional / Prandial insulin per carb ratio of 1 unit per 6 grams CHO consumed PLAN FOR DISCHARGE: * tbd
[2020-08-19] MEDS ORDERED: bisacodyL 10 MG SUPP PR PRN (16:12)
[2020-08-19] MEDS: ASPIRIN 81 MG ECTAB PO SCH (20:44)
[2020-08-19] MEDS: PRAVASTATIN SOD 10 MG TAB PO SCH (20:44)
[2020-08-19] MEDS: DOCUSATE SODIUM/SENNA 50/8.6MG TAB PO SCH (20:45)
[2020-08-20 06:18] LABS: Hematocrit (blood only) 28.4 % (37-47); Hemoglobin 9.1 g/dL (12.0-16.0); Mean Corpuscular Hemoglobin 29.8 pg (25-34); Mean Corpuscular Volume 93.1 fL (80-100); Mean Platelet Volume 9.2 fL (7.4-10.4); Platelet Count 329 K/uL (130-400); RDW Coefficient of Variation 12.6 % (11.5-14.5); RDW Standard Deviation 43.2 fL (36.4-46.3); Red Blood Count 3.05 M/uL (4.2-5.4)
[2020-08-20] MEDS: LEVOTHYROXINE SODIUM 50 MCG TABLET PO SCH (06:24)
[2020-08-20] MEDS: POLYETHYLENE (MIRALAX) 17 GM PACK PO SCH ×4 (06:24→23:42)
[2020-08-20 06:53] LABS: BUN Creatinine Ratio 18.3 (10-20); Calcium 8.8 mg/dl (8.5-10.1); Creatinine Clr Calc Pharmacy 55.3 ml/min; Est GFR (African American) 82.2; Est GFR (Non-African American) 70.9; Potassium 4.2 mmol/L (3.5-5.1)
[2020-08-20] MEDS: INSULIN ASPART 100 UNITS/ML 3 ML PEN SC SCH ×4 (07:38→22:03)
--- NOTE | 2020-08-20 07:51 | Hospitalist Progress Note ---
Date of Service August 20, 2020 Assessment & Plan (1) Status post lumbar surgery: Post op day# 3 S/P lumbar decompression fusion by Dr Nugent -pain management per ortho -wound management per ortho -PT/OT as appropriate -DVT prophylaxis per ortho -incentive spirometry -monitor H&H for acute blood loss anemia; Pre-op Hgb: 12 Anemia (acute blood loss/dilutional) Current hemoglobin 9.1 (stable), no need for blood transfusion No chest pain, shortness of breath, dizziness or lightheadedness Continue to closely monitor H&H (2) Diabetes mellitus, type 2: A1c: 8.2 in 05/2020 Hold metformin Glycemic pharmacist on board, appreciate glycemic management Follow up as outpt closely w/ PCP/ endocrinology (3) Hypertension: initially SBPs in 90s. Pt asymptomatic Hold furosemide, lisinopril and reassess in am This a.m. blood pressure 116/73, continue current management Plan to resume diuretics on discharge (4) Hypothyroidism: Continue levothyroxine (5) Chronic kidney disease: CKD III Baseline Cr:~1.0 Monitor renal functions, avoid nephrotoxic agents when possible DVT Prophylaxis -SCDs per ortho Follows with Kirt Antonio PA-C in [place] for routine care Admission and Anticipated Discharge Date Admission Date: August 17, 2020 Subjective Pt seen in follow up - post-op management/ anemia (acute blood loss/ dilutional), DM type 2 Patient is currently sitting up in chair, in no acute distress. Reports she is feeling well, no chest pain shortness of breath. She is moving her lower extremities, says that her lower extremity feels better now after surgery. Denies any abdominal pain, nausea or vomiting. Also denies any fever, chills, or dizziness. No BM yet, but passing flatus Hgb 9.1 stable PT at the bedside Review of Systems Review of Systems: All systems reviewed & are unremarkable except as noted in HPI & below Constitutional: no fever and no chills Respiratory: no cough and no dyspnea Cardiovascular: no chest pain and no palpitations Gastrointestinal: no abdominal pain, no nausea and no vomiting Physical Exam Physical Exam: General: no distress, overweight Head: normocephalic, atraumatic Eyes:conjunctiva non-injected, anicteric ENT: normal inspection external ears, nose, mucous membranes moist Neck: supple, trachea midline Lungs: clear, no respiratory distress, no wheezing/rhonchi/rales CV: RRR, no murmur, no pretibial edema Abd: normal BS, soft, non-tender Back: LIA drain in place with serosanguineous drainage Ext: no cyanosis, no calf tenderness; sensation to light touch intact Neuro: A&O x 3, no focal deficits noted, normal affect Skin: warm, dry Results & Data Results & Data ([facility]) Vital Signs (Past 12 Hours) Vital Signs Temp Pulse Resp BP Pulse Ox 08/20/20 07:00 36.7 C 84 16 116/73 93 08/20/20 06:08 37.2 C 75 16 108/71 91 08/19/20 22:20 36.8 C 77 14 108/70 92 Laboratory Results 08/20/20 08/20/20 08/20/20 Range/Units 06:09 05:26 05:26 WBC 6.80 (4.8-10.8) K/uL RBC 3.05 L (4.2-5.4) M/uL Hgb 9.1 L (12.0-16.0) g/dL Hct 28.4 L (37-47) % MCV 93.1 (80-100) fL MCH 29.8 (25-34) pg MCHC 32.0 (32-36) g/dL RDW Std Deviation 43.2 (36.4-46.3) fL RDW Coeff of Hannah 12.6 (11.5-14.5) % Plt Count 329 (130-400) K/uL MPV 9.2 (7.4-10.4) fL Sodium 132 L (136-145) mmol/L Potassium 4.2 (3.5-5.1) mmol/L Chloride 98 (98-107) mmol/L Carbon Dioxide 31 (21-32) mmol/L Anion Gap 3.0 (3-11) BUN 15 (7-18) mg/dl Creatinine 0.83 (0.6-1.2) mg/dl Est Cr Clr Drug Dosing 55.3 ml/min Est GFR ( Amer) 82.2 Est GFR (Non-Af Amer) 70.9 BUN/Creatinine Ratio 18.3 (10-20) Glucose 115 H (70-99) mg/dl POC Glucose 128 H (70-99) mg/dl Calcium 8.8 (8.5-10.1) mg/dl Crossmatch 08/19/20 08/19/20 08/19/20 Range/Units 20:42 17:04 11:58 WBC (4.8-10.8) K/uL RBC (4.2-5.4) M/uL Hgb (12.0-16.0) g/dL Hct (37-47) % MCV (80-100) fL MCH (25-34) pg MCHC (32-36) g/dL RDW Std Deviation (36.4-46.3) fL RDW Coeff of Hannah (11.5-14.5) % Plt Count (130-400) K/uL MPV (7.4-10.4) fL Sodium (136-145) mmol/L Potassium (3.5-5.1) mmol/L Chloride (98-107) mmol/L Carbon Dioxide (21-32) mmol/L Anion Gap (3-11) BUN (7-18) mg/dl Creatinine (0.6-1.2) mg/dl Est Cr Clr Drug Dosing ml/min Est GFR ( Amer) Est GFR (Non-Af Amer) BUN/Creatinine Ratio (10-20) Glucose (70-99) mg/dl POC Glucose 120 H 90 249 H (70-99) mg/dl Calcium (8.5-10.1) mg/dl Crossmatch 08/19/20 08/17/20 Range/Units 08:15 10:30 WBC (4.8-10.8) K/uL RBC (4.2-5.4) M/uL Hgb (12.0-16.0) g/dL Hct (37-47) % MCV (80-100) fL MCH (25-34) pg MCHC (32-36) g/dL RDW Std Deviation (36.4-46.3) fL RDW Coeff of Hannah (11.5-14.5) % Plt Count (130-400) K/uL MPV (7.4-10.4) fL Sodium (136-145) mmol/L Potassium (3.5-5.1) mmol/L Chloride (98-107) mmol/L Carbon Dioxide (21-32) mmol/L Anion Gap (3-11) BUN (7-18) mg/dl Creatinine (0.6-1.2) mg/dl Est Cr Clr Drug Dosing ml/min Est GFR ( Amer) Est GFR (Non-Af Amer) BUN/Creatinine Ratio (10-20) Glucose (70-99) mg/dl POC Glucose 181 H (70-99) mg/dl Calcium (8.5-10.1) mg/dl Crossmatch See Detail Medications Administered Current Inpatient Medications Acetaminophen (Acetaminophen 500 Mg Tab) 1,000 mg PO Q8H PRN PRN Reason: MILD Pain Scale 1,2,3 & Pre PT Stop: 09/16/20 18:07 Last Admin: 08/19/20 05:19 Dose: 1,000 mg Documented by: Al Hydrox/Mg Hydrox/Simethicone (Aluminum/Magnesium Susp 30 Ml Udc) 30 ml PO Q6H PRN PRN Reason: Dyspepsia Stop: 09/16/20 18:07 Artificial Tears (Artificial Tears) 1 drops OP BID PRN PRN Reason: DRY EYES Stop: 09/16/20 18:18 Aspirin (Aspirin 81 Mg Ectab) 81 mg PO HS JF Stop: 09/16/20 20:59 Last Admin: 08/19/20 20:44 Dose: 81 mg Documented by: Bisacodyl (Bisacodyl 10 Mg Supp) 10 mg ND DAILY PRN PRN Reason: Constipation Stop: 09/18/20 16:11 Diphenhydramine HCl (Diphenhydramine Capsule 25 Mg Cap) 25 mg PO Q6H PRN PRN Reason: Allergic Rhinitis/Insomnia Stop: 09/16/20 18:07 Famotidine (Famotidine 20 Mg Tab) 20 mg PO Q12H PRN PRN Reason: Dyspepsia Stop: 09/16/20 18:07 Furosemide (Furosemide 20 Mg Tab) 20 mg PO DAILY JF Stop: 09/17/20 08:59 Gabapentin (Gabapentin 300 Mg Cap) 300 mg PO TID JF Stop: 09/16/20 20:59 Last Admin: 08/19/20 20:45 Dose: 300 mg Documented by: Hydromorphone HCl (Hydromorphone Inj 0.5 Mg/0.5 Ml Syr) 0.5 mg IV Q3H PRN PRN Reason: MOD pain (scale 4-6) & Pre PT Stop: 08/31/20 18:07 Hydromorphone HCl (Hydromorphone Inj 1 Mg/Ml Syringe) 1 mg IV Q3H PRN PRN Reason: severe pain (scale 7-10) Stop: 08/31/20 18:07 Hydroxyzine HCl (Hydroxyzine Hcl 25 Mg Tab) 25 mg PO Q8H PRN PRN Reason: Anxiety Stop: 09/16/20 18:07 Promethazine HCl 12.5 mg/ (Sodium Chloride) 50.5 mls @ 202 mls/hr IV Q6H PRN PRN Reason: Nausea &/or Vomiting Stop: 09/16/20 18:07 Lorazepam (Ativan) 0.5 mg in 1 mls @ 1 mls/min IV Q8H PRN PRN Reason: Sedation/Anxiety Stop: 09/16/20 18:07 Acetaminophen (Ofirmev) 1,000 mg in 100 mls @ 400 mls/hr IV Q8H PRN PRN Reason: Pain Rating 1-3 & Pre PT Stop: 08/20/20 18:07 Influenza Virus Vaccine Quadrival (Do Not Administer Flu Vaccine) 1 ea N/A PRN PRN PRN Reason: Notification Stop: 09/16/20 18:07 Insulin Aspart (Insulin Aspart 100 Units/Ml 3 Ml Pen) 0 units SC [facility] Stop: 09/16/20 18:44 Last Admin: 08/20/20 07:38 Dose: 8 units Documented by: Insulin Glargine (Insulin Glargine Solostar 100 Units/Ml 3 Ml Pen) 0 units SC DAILY [facility]; Protocol Stop: 09/19/20 08:59 Levothyroxine Sodium (Levothyroxine Sodium 50 Mcg Tablet) [facility] Stop: 09/17/20 06:29 Last Admin: 08/20/20 06:24 Dose: 50 mcg Documented by: Lisinopril (Lisinopril 10 Mg Tab) 10 mg PO [facility] Stop: 09/16/20 20:59 Last Admin: 08/17/20 20:00 Dose: Not Given Documented by: Lorazepam (Lorazepam 0.5 Mg Tab) 0.5 mg PO Q8H PRN PRN Reason: sedation/anxiety Stop: 09/16/20 18:07 Magnesium Hydroxide (Magnesium Hydroxide Susp 30 Ml Udc) 30 ml PO Q24H PRN PRN Reason: Constipation Stop: 09/16/20 18:07 Metoclopramide HCl (Metoclopramide Hcl Inj 5 Mg/Ml 2 Ml Vial) 10 mg IV Q6H PRN PRN Reason: Nausea &/or Vomiting Stop: 09/16/20 18:07 Miscellaneous Information (Pharmacy Glycemic Mgmt Consult) 1 ea N/A UD PRN PRN Reason: Consult Stop: 09/16/20 18:11 Multivitamins (Multivitamin Tab) 1 tab PO QAM JF Stop: 09/17/20 08:59 Last Admin: 08/19/20 08:43 Dose: 1 tab Documented by: Naloxone HCl (Naloxone Hcl 0.4 Mg/1 Ml Vial/Carp) 0.1 mg IV Q5M PRN PRN Reason: Oversedation/respiratory dep Stop: 09/16/20 18:07 Ondansetron HCl (Ondansetron Inj 2 Mg/Ml 2 Ml Vial) 4 mg IV Q6H PRN PRN Reason: Nausea &/or Vomiting Stop: 09/16/20 18:07 Ondansetron HCl (Ondansetron 4 Mg Od Tab) 4 mg PO Q6H PRN PRN Reason: Nausea Stop: 09/16/20 18:07 Oxycodone HCl (Oxycodone Hcl Ir 5 Mg Tab (Immediate Release)) 5 - 10 mg PO Q4H PRN PRN Reason: Pain & Pre PT Stop: 08/31/20 18:07 Pantoprazole Sodium (Pantoprazole 40 Mg Tab) 40 mg PO DAILY PRN PRN Reason: Acid Reflux Stop: 09/16/20 18:07 Pneumococcal Polyvalent Vaccine (Do Not Administer Pneumococcal Vaccine) 1 ea N/A PRN PRN PRN Reason: Notification Stop: 09/16/20 18:07 Polyethylene Glycol (Polyethylene (Miralax) 17 Gm Pack) 17 gm PO Q6 JF Stop: 09/17/20 11:59 Last Admin: 08/20/20 06:24 Dose: 17 gm Documented by: Pravastatin Sodium (Pravastatin Sod 10 Mg Tab) 10 mg PO HS JF Stop: 09/16/20 20:59 Last Admin: 08/19/20 20:44 Dose: 10 mg Documented by: Senna/Docusate Sodium (Docusate Sodium/Senna 50/8.6mg Tab) 2 tab PO HS JF Stop: 09/16/20 20:59 Last Admin: 08/19/20 20:45 Dose: 2 tab Documented by: Sodium Biphosphate/Sodium Phosphate (Sod Phosphate/Sod Biphosphate Enema 132 Ml Btl) 132 ml ND ONE PRN PRN Reason: Constipation Stop: 09/16/20 18:07 Tramadol HCl (Tramadol Hcl 50 Mg Tablet) 50 - 100 mg PO Q4H PRN PRN Reason: Moderate-Severe pain & Pre PT Stop: 09/16/20 18:07 Last Admin: 08/19/20 08:42 Dose: 100 mg Documented by:
[2020-08-20] MEDS: traMADol HCL 50 MG TABLET PO PRN (08:18)
[2020-08-20] MEDS: GABAPENTIN 300 MG CAP PO SCH ×3 (08:24→20:21)
[2020-08-20] MEDS: MULTIVITAMIN TAB PO SCH (08:24)
[2020-08-20] MEDS ORDERED: INSULIN GLARGINE SOLOSTAR 100 UNITS/ML 3 ML PEN SC SCH (09:00)
--- NOTE | 2020-08-20 12:53 | Orthopedic Progress Note ---
Date of Service August 20, 2020 Assessment & Plan (1) Neurogenic claudication due to lumbar spinal stenosis: Admission and Anticipated Discharge Date Admission Date: August 17, 2020 This time continue physical therapy monitor LIA output and possible discharge home tomorrow with home health. Subjective Back pain is controlled leg symptoms markedly improved. Physical Exam Physical Exam: On exam she is in a chair at bedside is good strength testing. Appears comfortable. Results & Data ([facility]) Vital Signs (Past 12 Hours) Vital Signs Temp Pulse Resp BP Pulse Ox 08/20/20 07:00 36.7 C 84 16 116/73 93 08/20/20 06:08 37.2 C 75 16 108/71 91
[2020-08-20] MEDS: ASPIRIN 81 MG ECTAB PO SCH (20:21)
[2020-08-20] MEDS: DOCUSATE SODIUM/SENNA 50/8.6MG TAB PO SCH (20:21)
[2020-08-20] MEDS: PRAVASTATIN SOD 10 MG TAB PO SCH (20:21)
[2020-08-21] MEDS: LEVOTHYROXINE SODIUM 50 MCG TABLET PO SCH (05:55)
--- NOTE | 2020-08-21 07:24 | Hospitalist Progress Note ---
Date of Service August 21, 2020 Assessment & Plan (1) Status post lumbar surgery: Post op day# 4 S/P lumbar decompression fusion by Dr Nugent Pain and wound management per Ortho Activity and therapy as directed by Ortho Encourage incentive spirometry Anemia (acute blood loss/dilutional) Current hemoglobin 8.7 (stable), preop 12.2 no need for blood transfusion, She did have reported dizziness yesterday, but this has since subsided Continue to closely monitor H&H (2) Diabetes mellitus, type 2: A1c: 8.2 in 05/2020 Hold metformin Glycemic pharmacist on board, appreciate glycemic management Follow up as outpt closely w/ PCP/ endocrinology resume oral hypoglycemic regimen at discharge (3) Hypertension: BP on lower side postoperatively, 102/67 Continue to hold furosemide and lisinopril at discharge (4) Hypothyroidism: Continue levothyroxine (5) Chronic kidney disease: CKD III Baseline Cr:~1.0 Monitor renal functions, avoid nephrotoxic agents when possible DVT Prophylaxis SCDs per ortho Follows with Kirt Antonio PA-C in [place] for routine care Thank you for this consultation. We will follow the patient with you during their hospital stay. You can reach a [facility] via pager @ [phone]. Patient was seen and examined in collaboration with, Dr. Pantoja, please see addendum Pt seen and examined by me, care coordinated with Allie Corrales PA-C. Patient is currently sitting up in chair, in no acute distress, denies any dizziness or lightheadedness. Compression stockings applied. Advised patient to wear compression stockings when not in bed/sleeping. Patient should monitor blood pressure at home and hold her diuretics for now. She denies any fevers, chills, chest pain, shortness of breath, eating well, doing well with therapy. She is alert and oriented answering questions appropriately, moving extremities, heart sounds regular with murmur noted, lung sounds clear however somewhat diminished at bases. Incentive spirometer encouraged. We will have follow-up appointment scheduled for her PCP and also discussed follow-up with endocrinology as outpt. Donald Pantoja MD Admission and Anticipated Discharge Date Admission Date: August 17, 2020 Subjective Patient was seen and examined in room 315. Follow-up lumbar surgery, T2DM, HTN and dizziness. She is sitting up at bedside anticipating discharge today. "I feel much better today." She denies any dizziness with change in position. According to nursing staff yesterday patient had episode of lightheadedness and dizziness with change in position. Her blood pressure was also on the lower side. Her orthostatics were not positive. She currently denies any fever, chills, sweats, lightheadedness, dizziness, chest pain, shortness of breath, cough, nausea, vomiting, abdominal pain. She is passing flatus and moving bowels. Therapy has been going well. Planning to be going home today. Review of Systems Review of Systems: All systems reviewed & are unremarkable except as noted in HPI & below Physical Exam Physical Exam: Gen: WD/WN, sitting up in bedside chair, female, NAD, A&O x3 HEENT: Normocephalic, atraumatic, conjunctivae moist, sclerae anicteric, mucous membranes moist. Lung: Clear to Auscultation bilaterally, no wheezes/rales/rhonchi Heart: Regular rate, regular rhythm, 2/6 DHAVAL best LUSB, rubs, or gallops Abdomen: Soft, NT, ND +BS x 4 Extremities: No edema, teds in place Skin: Warm, no rash, negative turgor. Results & Data Results & Data ([facility]) Vital Signs (Past 12 Hours) Vital Signs Temp Pulse Resp BP Pulse Ox 08/20/20 22:07 36.8 C 91 H 18 121/71 93 Laboratory Results 08/21/20 08/21/20 08/20/20 Range/Units 07:14 07:14 20:24 WBC 5.32 (4.8-10.8) K/uL RBC 2.92 L (4.2-5.4) M/uL Hgb 8.7 L (12.0-16.0) g/dL Hct 26.6 L (37-47) % MCV 91.1 (80-100) fL MCH 29.8 (25-34) pg MCHC 32.7 (32-36) g/dL RDW Std Deviation 41.4 (36.4-46.3) fL RDW Coeff of Hannah 12.3 (11.5-14.5) % Plt Count 309 (130-400) K/uL MPV 8.6 (7.4-10.4) fL Sodium 133 L (136-145) mmol/L Potassium 4.6 (3.5-5.1) mmol/L Chloride 99 (98-107) mmol/L Carbon Dioxide 29 (21-32) mmol/L Anion Gap 5.0 (3-11) BUN 11 (7-18) mg/dl Creatinine 0.74 (0.6-1.2) mg/dl Est Cr Clr Drug Dosing 62.0 ml/min Est GFR ( Amer) 94.5 Est GFR (Non-Af Amer) 81.5 BUN/Creatinine Ratio 15.1 (10-20) Glucose 93 (70-99) mg/dl POC Glucose 114 H (70-99) mg/dl Calcium 8.4 L (8.5-10.1) mg/dl 08/20/20 08/20/20 Range/Units 17:16 11:53 WBC (4.8-10.8) K/uL RBC (4.2-5.4) M/uL Hgb (12.0-16.0) g/dL Hct (37-47) % MCV (80-100) fL MCH (25-34) pg MCHC (32-36) g/dL RDW Std Deviation (36.4-46.3) fL RDW Coeff of Hannah (11.5-14.5) % Plt Count (130-400) K/uL MPV (7.4-10.4) fL Sodium (136-145) mmol/L Potassium (3.5-5.1) mmol/L Chloride (98-107) mmol/L Carbon Dioxide (21-32) mmol/L Anion Gap (3-11) BUN (7-18) mg/dl Creatinine (0.6-1.2) mg/dl Est Cr Clr Drug Dosing ml/min Est GFR ( Amer) Est GFR (Non-Af Amer) BUN/Creatinine Ratio (10-20) Glucose (70-99) mg/dl POC Glucose 112 H 171 H (70-99) mg/dl Calcium (8.5-10.1) mg/dl Medications Administered Current Inpatient Medications Acetaminophen (Acetaminophen 500 Mg Tab) 1,000 mg PO Q8H PRN PRN Reason: MILD Pain Scale 1,2,3 & Pre PT Stop: 09/16/20 18:07 Last Admin: 08/19/20 05:19 Dose: 1,000 mg Documented by: Al Hydrox/Mg Hydrox/Simethicone (Aluminum/Magnesium Susp 30 Ml Udc) 30 ml PO Q6H PRN PRN Reason: Dyspepsia Stop: 09/16/20 18:07 Artificial Tears (Artificial Tears) 1 drops OP BID PRN PRN Reason: DRY EYES Stop: 09/16/20 18:18 Aspirin (Aspirin 81 Mg Ectab) 81 mg PO HS [facility] Stop: 09/16/20 20:59 Last Admin: 08/20/20 20:21 Dose: 81 mg Documented by: Bisacodyl (Bisacodyl 10 Mg Supp) 10 mg AK DAILY PRN PRN Reason: Constipation Stop: 09/18/20 16:11 Diphenhydramine HCl (Diphenhydramine Capsule 25 Mg Cap) 25 mg PO Q6H PRN PRN Reason: Allergic Rhinitis/Insomnia Stop: 09/16/20 18:07 Famotidine (Famotidine 20 Mg Tab) 20 mg PO Q12H PRN PRN Reason: Dyspepsia Stop: 09/16/20 18:07 Furosemide (Furosemide 20 Mg Tab) 20 mg PO DAILY [facility] Stop: 09/17/20 08:59 Gabapentin (Gabapentin 300 Mg Cap) 300 mg PO TID [facility] Stop: 09/16/20 20:59 Last Admin: 08/20/20 20:21 Dose: 300 mg Documented by: Hydromorphone HCl (Hydromorphone Inj 0.5 Mg/0.5 Ml Syr) 0.5 mg IV Q3H PRN PRN Reason: MOD pain (scale 4-6) & Pre PT Stop: 08/31/20 18:07 Hydromorphone HCl (Hydromorphone Inj 1 Mg/Ml Syringe) 1 mg IV Q3H PRN PRN Reason: severe pain (scale 7-10) Stop: 08/31/20 18:07 Hydroxyzine HCl (Hydroxyzine Hcl 25 Mg Tab) 25 mg PO Q8H PRN PRN Reason: Anxiety Stop: 09/16/20 18:07 Promethazine HCl 12.5 mg/ (Sodium Chloride) 50.5 mls @ 202 mls/hr IV Q6H PRN PRN Reason: Nausea &/or Vomiting Stop: 09/16/20 18:07 Lorazepam (Ativan) 0.5 mg in 1 mls @ 1 mls/min IV Q8H PRN PRN Reason: Sedation/Anxiety Stop: 09/16/20 18:07 Influenza Virus Vaccine Quadrival (Do Not Administer Flu Vaccine) 1 ea N/A PRN PRN PRN Reason: Notification Stop: 09/16/20 18:07 Insulin Aspart (Insulin Aspart 100 Units/Ml 3 Ml Pen) 0 units SC ACHS [facility] Stop: 09/16/20 18:44 Last Admin: 08/20/20 22:03 Dose: Not Given Documented by: Insulin Glargine (Insulin Glargine Solostar 100 Units/Ml 3 Ml Pen) 0 units SC DAILY [facility]; Protocol Stop: 09/19/20 08:59 Last Admin: 08/20/20 08:03 Dose: 20 units Documented by: Levothyroxine Sodium (Levothyroxine Sodium 50 Mcg Tablet) [facility] Stop: 09/17/20 06:29 Last Admin: 08/21/20 05:55 Dose: 50 mcg Documented by: Lisinopril (Lisinopril 10 Mg Tab) 10 mg PO [facility] Stop: 09/16/20 20:59 Last Admin: 08/17/20 20:00 Dose: Not Given Documented by: Lorazepam (Lorazepam 0.5 Mg Tab) 0.5 mg PO Q8H PRN PRN Reason: sedation/anxiety Stop: 09/16/20 18:07 Magnesium Hydroxide (Magnesium Hydroxide Susp 30 Ml Udc) 30 ml PO Q24H PRN PRN Reason: Constipation Stop: 09/16/20 18:07 Metoclopramide HCl (Metoclopramide Hcl Inj 5 Mg/Ml 2 Ml Vial) 10 mg IV Q6H PRN PRN Reason: Nausea &/or Vomiting Stop: 09/16/20 18:07 Miscellaneous Information (Pharmacy Glycemic Mgmt Consult) 1 ea N/A UD PRN PRN Reason: Consult Stop: 09/16/20 18:11 Multivitamins (Multivitamin Tab) 1 tab PO QAM [facility] Stop: 09/17/20 08:59 Last Admin: 08/20/20 08:24 Dose: 1 tab Documented by: Naloxone HCl (Naloxone Hcl 0.4 Mg/1 Ml Vial/Carp) 0.1 mg IV Q5M PRN PRN Reason: Oversedation/respiratory dep Stop: 09/16/20 18:07 Ondansetron HCl (Ondansetron Inj 2 Mg/Ml 2 Ml Vial) 4 mg IV Q6H PRN PRN Reason: Nausea &/or Vomiting Stop: 09/16/20 18:07 Ondansetron HCl (Ondansetron 4 Mg Od Tab) 4 mg PO Q6H PRN PRN Reason: Nausea Stop: 09/16/20 18:07 Last Admin: 08/20/20 12:31 Dose: 4 mg Documented by: Oxycodone HCl (Oxycodone Hcl Ir 5 Mg Tab (Immediate Release)) 5 - 10 mg PO Q4H PRN PRN Reason: Pain & Pre PT Stop: 08/31/20 18:07 Pantoprazole Sodium (Pantoprazole 40 Mg Tab) 40 mg PO DAILY PRN PRN Reason: Acid Reflux Stop: 09/16/20 18:07 Pneumococcal Polyvalent Vaccine (Do Not Administer Pneumococcal Vaccine) 1 ea N/A PRN PRN PRN Reason: Notification Stop: 09/16/20 18:07 Pravastatin Sodium (Pravastatin Sod 10 Mg Tab) 10 mg PO HS [facility] Stop: 09/16/20 20:59 Last Admin: 08/20/20 20:21 Dose: 10 mg Documented by: Senna/Docusate Sodium (Docusate Sodium/Senna 50/8.6mg Tab) 2 tab PO HS [facility] Stop: 09/16/20 20:59 Last Admin: 08/20/20 20:21 Dose: 2 tab Documented by: Sodium Biphosphate/Sodium Phosphate (Sod Phosphate/Sod Biphosphate Enema 132 Ml Btl) 132 ml AK ONE PRN PRN Reason: Constipation Stop: 09/16/20 18:07 Tramadol HCl (Tramadol Hcl 50 Mg Tablet) 50 - 100 mg PO Q4H PRN PRN Reason: Moderate-Severe pain & Pre PT Stop: 09/16/20 18:07 Last Admin: 08/20/20 08:18 Dose: 100 mg Documented by:
[2020-08-21 07:25] LABS: Hematocrit (blood only) 26.6 % (37-47); Hemoglobin 8.7 g/dL (12.0-16.0); Mean Corpuscular Hemoglobin 29.8 pg (25-34); Mean Corpuscular Hgb Conc 32.7 g/dL (32-36); Mean Corpuscular Volume 91.1 fL (80-100); Mean Platelet Volume 8.6 fL (7.4-10.4); Platelet Count 309 K/uL (130-400); RDW Coefficient of Variation 12.3 % (11.5-14.5); RDW Standard Deviation 41.4 fL (36.4-46.3); Red Blood Count 2.92 M/uL (4.2-5.4); White Blood Count 5.32 K/uL (4.8-10.8)
[2020-08-21 07:57] LABS: BUN Creatinine Ratio 15.1 (10-20); Calcium 8.4 mg/dl (8.5-10.1); Est GFR (African American) 94.5; Est GFR (Non-African American) 81.5; Potassium 4.6 mmol/L (3.5-5.1)
[2020-08-21] MEDS: GABAPENTIN 300 MG CAP PO SCH ×2 (08:31→13:23)
[2020-08-21] MEDS: MULTIVITAMIN TAB PO SCH (08:31)
[2020-08-21] MEDS: INSULIN ASPART 100 UNITS/ML 3 ML PEN SC SCH ×2 (08:34→12:43)
[2020-08-21] MEDS ORDERED: INSULIN GLARGINE SOLOSTAR 100 UNITS/ML 3 ML PEN SC SCH (09:00)
--- NOTE | 2020-08-21 10:30 | Discharge Summary ---
Date of Service August 21, 2020 Admission HPI Per Admitting Provider Pt is 70 y/o F with PMH HTN, HLD, DM II, hypothyroidism, GERD, CKD III seen in medical consultation for post op medical management s/p lumbar decompression and fusion by Dr Nugent. Post op pt reports doing ok with pain controlled. Denies N/V, CP, SOB. Has chronic bilateral leg/feet paraesthesias with left leg worse at baseline. Has Díaz cath in place. Denies fever/chills, N/V/D/C, ALONZO, dizziness, neck pain, palpitations, cough, sore throat, rhinorrhea, abdominal pain, extremity edema, rashes. Principal Diagnosis Lumbar spinal stenosis with neurogenic claudication Discharge Data Allergies Allergy/AdvReac Type Severity Reaction Status Date / Time Opioids - Morphine Analogues AdvReac Mild N/V Verified 08/17/20 10:36 Consultations 08/17/20 18:08 Consult Case Management - Discharge Planning Routine Consult Hospitalist Routine Procedures Performed Operation Date: 08/17/20 11:45 Actual Procedures p L2-S1 Decompression and Fusion, Spinal Cord Monitoring, application of BMP(Not Applicable) - Mio Nugent DO Ordered Studies 08/17/20 11:45 FL fluoroscopy <1hr Routine FL lumbar spine 2-3V Routine Hospital Course (1) Neurogenic claudication due to lumbar spinal stenosis: Patient went lumbar decompression fusion tolerated well second orthopedic for possibly. Postop day 1 she was up and ambulating progressed to postop day #2 and 3. On postop day #4 she had excellent strength testing LIA drain decreasing appropriately. Pain well controlled. Socially discharged home with home health. Discharge orders instructions can be found in chart for further review. Total Time Total Time Spent Total Time Spent (In Minutes): 20 minutes Discharge Plan Discharge Items Patient Disposition: Home - Home Health Services Reason For Visit: Intervertebral Disc Disorders with Radiculopathy Discharge Diagnosis: Lumbar spinal stenosis with neurogenic claudication and radiculopathy Activity: As commented below Non-emergency contact: Primary Care Provider Call non-emergency contact if: you have any medication questions Follow-up/Referrals: Kirt Antonio [Primary Care Provider] - 08/29/20 2:00 pm Diet: Regular Addtl Attending Provider Instructions: ACTIVITY RECOMMENDATIONS: SELF CARE INSTRUCTIONS AFTER THORACIC/LUMBAR FUSIONS 1. You may walk to your tolerance. It is good exercise for your legs and back. Expect some back and intermittent leg aches and pains. 2. You may perform "counter-top" level activities (make a sandwich, staci with a project, etc.). 3. No bending or lifting of more than 10 pounds or back twisting of any nature (roll like a log when turning in bed). 4. You may ride in a car for 20-30 minutes at a time. No driving until after your first visit with your doctor. 5. Frequent changes of position and restricting sitting to 30 minutes at a time will help limit the amount of back spasms and stiffness you may experience. 6. You may discontinue the use of ambulatory aids (cane, crutches, etc.) once your strength and confidence allow. 7. You may early interventionist the shower and let water strike your incision when you arrive home at least once daily. Do not take a tub bath, sit in a hot tub or go into a swimming pool until after your first recheck in the office. SPECIAL CARE INSTRUCTIONS: VERY IMPORTANT TO READ AND REVIEW A. Your surgical incision has been closed with a cosmetic suture under the skin that will dissolve in about 6 weeks. In 14 days, you can use a pair of clean scissors and cut the suture that is left outside of the skin at the ends of your incision. 1. The small skin tapes can be removed 7 days after surgery if they have not fallen off by that point. 2. You may keep the wound open to air as much as possible to promote healing after post-op day number 5 unless told otherwise by your doctor. 3. If you think the wound looks like it is becoming infected (redness or worsening drainage) and/or you are experiencing fever, chill or worsening back pain and muscle spasms, contact the office so that we may evaluate you as soon as possible. B. Complications are uncommon, but please contact us if you have any signs or symptoms of: 1. wound infection (fever higher than 102.5 degrees F, redness, separation of wound, drainage, or increasing pain from the incision) 2. blood clots in legs (pain, swelling, redness and warmth in legs) 3. urinary tract infection (fever higher than 102.5 degrees F, burning upon urination or increased frequency of urination) 4. nerve problems (inability to walk on your toes or heels, numbness, loss of bowel or bladder control) 5. any other symptoms that concern you C. Please call the office at if you have any concerns or questions about your operation or recovery. D. No smoking! Smoking drastically decreases the chance of a solid fusion. E. Do not take any anti-inflammatory medications (Indocin, Advil, Motrin, Aspirin, Naprosyn, etc.) as these may inhibit the chance of a solid fusion. Tylenol is okay to take for pain. MANAGING PAIN AFTER SPINAL SURGERY 1. Narcotic medication is intended for short-term use and will be provided for surgical pain. Surgical pain usually lasts for a period of 4-6 weeks. Narcotic medication includes Percocet, Vicodin, Darvocet, Tylenol #3 or Lortab. 2. Longer-term pain is more appropriately treated with non-narcotic medication such as Tylenol ES. 3. Muscle spasm is not appropriately treated with narcotics. Muscle relaxers such as Soma, Flexeril or Skelaxin can be used along with Tylenol ES. 4. Remember that we all live with some "aches and pains". This is not unusual or uncommon after an injury or as we get older. a. Back pain is expected and may include muscle spasms for 4 to 6 weeks after surgery. The pain should gradually improve. If the pain worsens for no apparent reason, please contact the office. b. Intermittent leg pain may also be experienced and should not be concerned about unless it worsens for no apparent reason. If so, please contact the office. 5. We will provide appropriate medication within the normal guidelines of their prescribed use. We will also be very cautious and aware of potential abuse and extended duration of patients' medication needs. a. Pain medications are for your comfort and to assist with sleep and rest so that the tissue can heal. They are not provided in order to return to normal activity and should not be used through the day. To do so or worsening pain at night can result from ongoing tissue damage and development of tolerance to the prescribed medicine. 6. Please allow 2-3 days to process refills. Prescriptions will not be mailed but must be picked up at the office. FOLLOW UP VISIT: Keep your scheduled follow-up appointment. Any questions, please call the office at . Addtl Rn Clinical Documentation Specialist Provider Instructions: During your hospital stay your blood pressure was on the lower side. On Day of Discharge your blood pressure was 102/67. Please continue holding your lisinopril and lasix until your follow up with your PCP Kirt Antonio on 08/29/20. Monitor your blood pressure daily and keep a log of your blood pressure. Take this log with you to your next appointment with Kirt Antonio. When changing position (going from lying to sitting, or sitting to standing) take your time. Wait a few seconds with each position change, especially prior to standing. Also recommend wearing compression stockings when you are not lying in bed/sleeping. Pending Studies at Discharge: No Stand-Alone Forms: My [facility] BIG Launcher, Smoking Cessation Medications and DC Order Prescriptions: New tramadol 50 mg tablet 50 mg PO Q6H PRN (Reason: pain, moderate) Qty: 30 RF: 0 Continued pantoprazole 40 mg tablet,delayed release (DR/EC) 40 mg PO DAILY PRN (Reason: Acid Reflux) RF: 0 furosemide 20 mg tablet 20 mg PO DAILY Qty: 90 RF: 3 multivitamin Tablet 1 tab PO QAM RF: 0 glipizide 10 mg Tablet 10 mg PO BID RF: 0 acarbose 50 mg Tablet 50 mg PO TID RF: 0 aspirin [Aspir-81] 81 mg Tablet,Delayed Release (Dr/Ec) 81 mg PO HS RF: 0 pravastatin 10 mg Tablet 10 mg PO HS RF: 0 levothyroxine 50 mcg Tablet 50 mcg PO QAM RF: 0 metformin 1,000 mg Tablet 1,000 mg PO BID RF: 0 lisinopril 10 mg Tablet 10 mg PO HS RF: 0 docusate sodium [Stool Softener] 100 mg Capsule 100 mg PO QAM RF: 0 Eye Drop Tears 1-0.2-0.2 % Drops 1 drp OPHTHALMIC (EYE) BID PRN (Reason: Dry Eyes) RF: 0 gabapentin 300 mg Capsule 300 mg PO TID RF: 0 Discharge Orders: Discharge Order (Routine); Ordered 08/21/20 Ordered By: Mio Nugent Admission Data Admit Date/Time: 08/17/20 17:10 Attending Provider: Mio Nugent Admit Provider: Mio Nugent Primary Care Provider: Kirt Antonio Other Providers: Shankar Pantoja Other Interventions: Discharge Summary Assessment (RN) Last Done: 08/21/20 09:24
== END 2020-08-21 15:04 | disposition home health service (06) | DRG 460 ==
LOC: ASU 10:04 → 3E 17:10